=== PATIENT | female | born 1970 | race Caucasian/White ===

== ENCOUNTER 2024-04-18 08:49 | Inpatient (IN) ==
[2024-04-18 10:04] LABS: Hematocrit (blood only) 33.7 % (37.0-47.0); Hemoglobin 11.2 g/dl (12.0-16.0); Mean Corpuscular Hemoglobin 30.7 pg (25.0-34.0); Mean Corpuscular Hgb Conc 33.2 g/dL (32.0-36.0); Mean Corpuscular Volume 92.3 fL (80.0-100.0); Mean Platelet Volume 11.7 fL (9.4-12.4); Platelet Count 246 K/uL (130-400); RDW Coefficient of Variation 13.3 % (11.5-14.5); RDW Standard Deviation 45.5 fL (36.4-46.3); Red Blood Count 3.65 M/uL (4.20-5.40); White Blood Count 18.26 K/ul (4.8-10.8)
[2024-04-18 10:23] LABS: Albumin Globulin Ratio 1.1 (0.9-2); Albumin Level 3.5 gm/dl (3.4-5.0); BUN Creatinine Ratio 17.3 (10-20); Bilirubin,Total 0.9 mg/dl (0.2-1.0); Calcium 9.2 mg/dl (8.6-10.3); Est GFR (African American) 104.7 ml/min; Est GFR (Non-African American) 90.4 ml/min; Globulin 3.3 gm/dl (2.5-4.0); Potassium 4.1 mmol/L (3.5-5.1); Total Protein 6.8 gm/dl (6.0-8.3)
[2024-04-18 10:33] LABS: Basophils # (auto) 0.03 K/uL (0.00-0.20); Basophils % (auto) 0.2 %; Dohle Bodies 1+; Immature Granulocytes % (auto) 0.5 %; Lymphocytes # (auto) 0.39 K/uL (1.20-3.40); Lymphocytes % (auto) 2.1 %; Monocytes # (auto) 0.73 K/uL (0.11-0.59); Neutrophils # (auto) 17.01 K/uL (1.40-6.50); Neutrophils % (auto) 93.2 %; Polychromasia 1+
[2024-04-18] MEDS: SODIUM CHLORIDE 0.9% 1,000 ML IV SCH ×2 (10:37→19:21)
[2024-04-18] MEDS: ACETAMINOPHEN 1,000 MG/100 ML VIAL IV STA (10:38)
[2024-04-18 10:41] LABS: Adenovirus PCR Not Detected (NotDetected); Bordetella parapertussis PCR Not Detected (NotDetected); Bordetella pertussis PCR Not Detected (NotDetected); Chlamydia pneumoniae PCR Not Detected (NotDetected); Coronavirus 229E PCR Not Detected (NotDetected); Coronavirus CoV-2 (COVID19)PCR Not Detected (NotDetected); Coronavirus HKU1 PCR Not Detected (NotDetected); Coronavirus NL63 PCR Not Detected (NotDetected); Coronavirus OC43PCR Not Detected (NotDetected); Human Metapneumovirus PCR Not Detected (NotDetected); Influenza A PCR Not Detected (NotDetected); Influenza B PCR Not Detected (NotDetected); Mycoplasma pneumoniae PCR Not Detected (NotDetected); Parainfluenza Virus 1 PCR Not Detected (NotDetected); Parainfluenza Virus 2 PCR Not Detected (NotDetected); Parainfluenza Virus 3 PCR Not Detected (NotDetected); Parainfluenza Virus 4 PCR Not Detected (NotDetected); Respiratory Syncytial VirusPCR Not Detected (NotDetected); Rhinovirus/Enterovirus PCR Not Detected (NotDetected)
--- NOTE | 2024-04-18 10:43 | XRay Report ---
SINGLE VIEW CHEST CLINICAL HISTORY: Respiratory illness. FINDINGS: An AP, portable, upright chest radiograph is compared to study dated 01/30/2024. The cardiome diastinal silhouette is unremarkable. Airspace consolidation is seen to the left lower lung and there is a small left pleural effusion. The right lung appears clear. No pneumothorax is seen. The bony th orax is grossly intact. IMPRESSION: 1. Airspace consolidation in the left lower lung is typical for pneumonia. Clinical correlation will be required and radiographic follow-up to resolution is recommended. 2. Small left pleural effusion. ACT 112: Negative or not required by law. Electronically signed by: Zion Boston M.D. 04/18/2024 10:40 AM
--- NOTE | 2024-04-18 11:51 | Emergency Department Note ---
Impression & Plan Sepsis, Pneumonia, Bilateral pleural effusion, Leukocytosis ED Provider Note NAME: WILNER DEAN AGE: 54 SEX: F : 1970 ARRIVES VIA: Walk-In INFORMANT: Patient ED PROVIDER(S): Scott Good MD CHIEF COMPLAINT: Fever, generalized body aches, left-sided chest pain, shortness of breath PLAN: Disposition: Admit MEDICAL DECISION MAKING: The patient is a pleasant 54-year-old woman with a past medical history of hypertension, HLD who presents to emergency department via walk-in for evaluation of worsening fevers, body aches, left-sided chest pain shortness of breath after being seen in this emergency department 2 days ago for milder flulike symptoms where she was positive for enterovirus/rhinovirus. She reports since then her symptoms have only worsened. She denies nausea and vomiting. She denies diarrhea but has not had much to eat over the past couple of days. Patient reports history of vaping. On evaluation the patient is uncomfortable but no acute distress, with temperature of 39.3 and vital signs otherwise stable. She appears clinically dry. She has boggy nasal turbinates. She has rhonchi and wheezes of bilateral mid to lower lung bravo, left greater than right. Abdomen is nontender. EKG without overt acute ischemia. Chest x-ray demonstrates suspicion of left lower lobe pneumonia. WBC 18.2 K with neutrophilia but no left shift. H/H 11.2/33.7 decreased from January. Platelets 2 46K, nonspecific. Chemistry without metabolic acidosis. Creatinine is within normal limits. BUN is not elevated. LFTs with ALT of 56, nonspecific and otherwise normal. Lactate wnl. Procalcitonin is elevated 5.1. Respiratory BioFire is negative today. CTA of the chest was performed was negative for PE. Further characterization of multifocal airspace consolidation is described that is confluent throughout the left lower lobe. There is left larger than right pleural effusions. Incidental left breast soft tissue opacity is described. On re-evaluation patient did feel some improvement though still feeling unwell following Dexamethasone and Duoneb for bronchspasm and IV fluid ration with 2 L of normal saline (> 30cc/kg) IV APAP and Toradol. Of note, blood pressure had recorded 90s/40s after CT when the patient was resting and upon reassessment blood pressure was 110s/60s. Patient was given additional IV fluid hydration. Blood culture obtained and empiric treatment for CAP initiated with ceftriaxone and doxycycline. Patient does agree with plan for admission for further management. Case was discussed with Lucero Gracia PAC with Dr. Ledezma, [facility] hospitalist, who will evaluate the patient for admission. Further management per admitting team. Triage Nursing notes reviewed and agree them. Prior/external medical records reviewed Vital Signs: reviewed Differential diagnosis: Reactive airway disease, pneumonia, pneumothorax, COPD, CHF, infections, cardiac ischemia, pulmonary embolism, musculoskeletal, gastrointestinal, as well as other pathologies. ER treatment provided: See below. Diagnostics interpreted by me: ECG: Normal sinus rhythm, 78 bpm no ectopy, no overt ST ovation or depression, QTc 405, QRS 80. Cardiac Monitoring: An order for continuous cardiac monitoring was placed and demonstrated Normal sinus rhythm, 78 bpm no ectopy. Laboratory studies: See below Imaging studies: See below Consultation(s): Case was discussed with Lucero Gracia PAC with Dr. Ledezma, [facility] hospitalist, who will evaluate the patient for admission. HPI: The patient is a pleasant 54-year-old woman with a past medical history of hypertension, HLD who presents to emergency department via walk-in for evaluation of worsening fevers, body aches, left-sided chest pain shortness of breath after being seen in this emergency department 2 days ago for milder flulike symptoms where she was positive for enterovirus/rhinovirus. She reports since then her symptoms have only worsened. She denies nausea and vomiting. She denies diarrhea but has not had much to eat over the past couple of days. Patient reports history of vaping. ROS: See above HPI for pertinent positives & negatives. A total of 10 systems reviewed and were otherwise negative. VITALS:See Below PHYSICAL EXAMINATION: GENERAL: Awake, alert, uncomfortable-appearing, in no distress HENT: Normocephalic, atraumatic. Boggy nasal turbinates. Oropharynx with dry mucous membranes and otherwise unremarkable. EYES: Normal conjunctiva. Sclera non-icteric. NECK: Supple. No nuchal rigidity. FROM. No JVD. RESPIRATORY: Rhonchi and wheezes of bilateral mid to lower lung bravo, left greater than right. CARDIAC: Regular rate, normal rhythm. Extremities warm and well perfused. Pulses equal. ABDOMEN: Soft, non-distended. No tenderness to palpation. No rebound or guarding. No masses. MUSCULOSKELETAL: Chest examination reveals no tenderness. The back is symmetrical on inspection without obvious abnormality. There is no CVA tenderness to palpation. No joint edema. LOWER EXTREMITIES: Calves are equal size bilaterally and non-tender. No edema. No discoloration. NEURO: Normal sensorium. No sensory or motor deficits noted. SKIN: No rash or jaundice noted. ED COURSE: Critical Care: I have personally spent greater than 35 minutes of critical care time in the direct management of this patient. This includes bedside care, interpretation of diagnostic studies, and testing, discussion with consultants, patient, and family members, and other required patient management activities. This 35 minutes is in excess of all separately billable procedures. Scott Good MD Past Med/Surg History Problem List (Updated 04/18/24 @ 17:46 by Scott Good MD) Leukocytosis (Acute) Bilateral pleural effusion (Acute) Anemia Multifocal pneumonia Sepsis (Acute) Pneumonia (Acute) Myalgia (Acute) Lab test negative for COVID-19 virus (Acute) Flu-like symptoms (Acute) Enterovirus infection (Acute) Coronary artery calcification Epigastric abdominal pain (Acute) Headache (Acute) Nausea & vomiting (Acute) Medical History Anxiety Family history of premature CAD Hypertension Gestational diabetes Diabetes mellitus Surgical History History of gastric bypass Family History Mother Afib Pacemaker Father Coronary heart disease Social History Smoking Status: Current every day smoker Tobacco Type: E-cigarettes / Vaping Hx Alcohol Use: No Hx Substance Use: No Preferred Language: Urdu Feels Safe at Home: Yes Allergies Allergies Allergy/AdvReac Type Severity Reaction Status Date / Time Sulfa (Sulfonamide Allergy Mild HIVES Unverified 06/27/16 00:32 Antibiotics) Z CARLOS Allergy Mild HIVES Uncoded 01/31/08 12:00 *GUAIFENESIN/PHENYLEPHRINE Allergy Unknown Y Uncoded 06/27/16 00:32 (Generic Allergy) Home Meds Home Medications Medication Instructions Recorded Confirmed atorvastatin 10 mg tablet 10 mg PO HS 04/18/24 04/18/24 calcium cit 250 mg-ergocalciferol 1 tab PO DAILY 04/18/24 04/18/24 (vit D2) 2.5 mcg (100 unit) tablet cetirizine 10 mg tablet 10 mg PO DAILY 04/18/24 04/18/24 lisinopril 5 mg tablet 5 mg PO DAILY 04/18/24 04/18/24 magnesium oxide 400 mg (241.3 mg 800 mg PO TID 04/18/24 04/18/24 magnesium) tablet metformin 500 mg tablet,extended 500 mg PO BID 04/18/24 04/18/24 release 24 hr metoprolol tartrate 50 mg tablet 50 mg PO BID 04/18/24 04/18/24 semaglutide 0.25 mg or 0.5 mg (2 0.25 mg subcut Q14D 04/18/24 04/18/24 mg/3 mL) subcutaneous pen injector (Ozempic) Results & Data (ED) Vital Signs Vital Signs - 24 hr 04/18/24 09:00 04/18/24 10:20 04/18/24 10:21 Temperature 37.6 C H Temperature Source Oral Pulse Rate 80 Pulse Rate [Radial] 81 Pulse Rate from SpO2 Sensor Pulse Rhythm [Radial] Pulse Strength [Radial] Respiratory Rate 22 18 Respiratory Effort / Characteristics Respiratory Depth Respiratory Pattern Blood Pressure 129/79 Blood Pressure [Left Arm] 128/68 Blood Pressure Mean 95 Blood Pressure Mean [Left Arm] 88 Blood Pressure Position [Left Arm] Pulse Oximetry 97 96 96 Oxygen Delivery Method Room Air Room Air Sepsis Recent Fever Within 48 Hours Yes Sepsis New/Unexplained Change in Mental Status N/A Sepsis Action Taken by Nursing No Action Required 04/18/24 10:22 04/18/24 10:36 04/18/24 12:00 Temperature 39.3 C H Temperature Source Oral Pulse Rate Pulse Rate [Radial] 87 Pulse Rate from SpO2 Sensor Pulse Rhythm [Radial] Pulse Strength [Radial] Respiratory Rate 18 Respiratory Effort / Characteristics Respiratory Depth Respiratory Pattern Blood Pressure Blood Pressure [Left Arm] 108/65 Blood Pressure Mean Blood Pressure Mean [Left Arm] 79 Blood Pressure Position [Left Arm] Pulse Oximetry 97 Oxygen Delivery Method Room Air Room Air Sepsis Recent Fever Within 48 Hours Sepsis New/Unexplained Change in Mental Status Sepsis Action Taken by Nursing 04/18/24 14:12 04/18/24 14:38 04/18/24 15:15 Temperature Temperature Source Pulse Rate 75 Pulse Rate [Radial] 79 84 Pulse Rate from SpO2 Sensor Pulse Rhythm [Radial] Regular Pulse Strength [Radial] Normal Respiratory Rate 18 20 22 Respiratory Effort / Characteristics Non-Labored Spontaneous Respiratory Depth Normal Respiratory Pattern Regular Blood Pressure Blood Pressure [Left Arm] 90/45 L 112/61 Blood Pressure Mean Blood Pressure Mean [Left Arm] 60 78 Blood Pressure Position [Left Arm] Semi-fowlers Pulse Oximetry 93 97 Oxygen Delivery Method Room Air Room Air Sepsis Recent Fever Within 48 Hours Sepsis New/Unexplained Change in Mental Status Sepsis Action Taken by Nursing 04/18/24 15:30 04/18/24 15:31 04/18/24 15:36 Temperature Temperature Source Pulse Rate 79 82 Pulse Rate [Radial] Pulse Rate from SpO2 Sensor Pulse Rhythm [Radial] Pulse Strength [Radial] Respiratory Rate 22 Respiratory Effort / Characteristics Respiratory Depth Respiratory Pattern Blood Pressure 141/67 H Blood Pressure [Left Arm] Blood Pressure Mean 89 Blood Pressure Mean [Left Arm] Blood Pressure Position [Left Arm] Pulse Oximetry Oxygen Delivery Method Sepsis Recent Fever Within 48 Hours Sepsis New/Unexplained Change in Mental Status Sepsis Action Taken by Nursing 04/18/24 16:00 04/18/24 16:30 04/18/24 16:30 Temperature Temperature Source Pulse Rate 69 68 Pulse Rate [Radial] Pulse Rate from SpO2 Sensor 68 68 Pulse Rhythm [Radial] Pulse Strength [Radial] Respiratory Rate 19 18 Respiratory Effort / Characteristics Respiratory Depth Respiratory Pattern Blood Pressure 106/68 Blood Pressure [Left Arm] Blood Pressure Mean 79 Blood Pressure Mean [Left Arm] Blood Pressure Position [Left Arm] Pulse Oximetry 98 95 Oxygen Delivery Method Sepsis Recent Fever Within 48 Hours Sepsis New/Unexplained Change in Mental Status Sepsis Action Taken by Nursing Laboratory Data Attestation: I reviewed the patient's lab results. 04/18/24 09:30 04/18/24 09:30 Lab Results 04/18/24 04/18/24 Range/Units 09:30 12:07 WBC 18.26 H (4.8-10.8) K/ul RBC 3.65 L (4.20-5.40) M/uL Hgb 11.2 L (12.0-16.0) g/dl Hct 33.7 L (37.0-47.0) % MCV 92.3 (80.0-100.0) fL MCH 30.7 (25.0-34.0) pg MCHC 33.2 (32.0-36.0) g/dL RDW Std Deviation 45.5 (36.4-46.3) fL RDW Coeff of Mala 13.3 (11.5-14.5) % Plt Count 246 (130-400) K/uL MPV 11.7 (9.4-12.4) fL Immature Gran % (Auto) 0.5 % Neut % (Auto) 93.2 % Lymph % (Auto) 2.1 % [place] % (Auto) 4.0 % Eos % (Auto) 0.0 % Baso % (Auto) 0.2 % Neut # (Auto) 17.01 H (1.40-6.50) K/uL Lymph # (Auto) 0.39 L (1.20-3.40) K/uL [place] # (Auto) 0.73 H (0.11-0.59) K/uL Eos # (Auto) 0.00 (0.00-0.50) K/uL Baso # (Auto) 0.03 (0.00-0.20) K/uL Immature Gran # (Auto) 0.10 (0.01-0.20) K/uL Dohle Bodies 1+ Polychromasia 1+ Sodium 134 L (136-145) mmol/L Potassium 4.1 (3.5-5.1) mmol/L Chloride 100 (98-107) mmol/L Carbon Dioxide 26 (21-32) mmol/L Anion Gap 8 (3-11) BUN 13 (6-23) mg/dl Creatinine 0.75 (0.6-1.2) mg/dl Est Cr Clr Drug Dosing 87.0 ml/min Est GFR ( Amer) 104.7 ml/min Est GFR (Non-Af Amer) 90.4 ml/min BUN/Creatinine Ratio 17.3 (10-20) Glucose 131 H (70-99(Fasting)) mg/dl Lactate 1.4 (0.4-2.0) mmol/L Calcium 9.2 (8.6-10.3) mg/dl Total Bilirubin 0.9 (0.2-1.0) mg/dl AST 26 (13-39) U/L ALT 56 H (7-52) U/L Alkaline Phosphatase 93 (34-104) U/L Total Protein 6.8 (6.0-8.3) gm/dl Albumin 3.5 (3.4-5.0) gm/dl Globulin 3.3 (2.5-4.0) gm/dl Albumin/Globulin Ratio 1.1 (0.9-2) Procalcitonin 5.11 H (0-0.5) ng/ml Adenovirus (PCR) Not Detected (NotDetected) B. pertussis DNA (PCR) Not Detected (NotDetected) B.parapertussis DNA PCR Not Detected (NotDetected) C. pneumoniae DNA (PCR) Not Detected (NotDetected) Coronavirus OC43 (PCR) Not Detected (NotDetected) Coronavirus HKU1 (PCR) Not Detected (NotDetected) Coronavirus 229E (PCR) Not Detected (NotDetected) SARS-CoV-2 (PCR) Not Detected (NotDetected) Coronavirus NL63 (PCR) Not Detected (NotDetected) Human Metapneumovir PCR Not Detected (NotDetected) Influenza Type A (PCR) Not Detected (NotDetected) Influenza Type B (PCR) Not Detected (NotDetected) M. pneumoniae (PCR) Not Detected (NotDetected) Parainfluenza 1 (PCR) Not Detected (NotDetected) Parainfluenza 2 (PCR) Not Detected (NotDetected) Parainfluenza 3 (PCR) Not Detected (NotDetected) Parainfluenza 4 (PCR) Not Detected (NotDetected) RSV (PCR) Not Detected (NotDetected) Entero/Rhino (PCR) Not Detected (NotDetected) Administered Medications Discontinued Medications Albuterol (Albut/Ipratrop 3mg/0.5mg Neb 3 Ml Vial) 3 ml NEB NOW STA; Protocol Stop: 04/18/24 11:50 Last Admin: 04/18/24 12:49 Dose: 3 ml Documented By: Dexamethasone Sodium Phosphate (DexamethasonePf 10 Mg/Ml Vial) 10 mg IV NOW ONE Stop: 04/18/24 11:50 Last Admin: 04/18/24 12:06 Dose: 10 mg Documented By: KEVIN Sodium Chloride (Nss) 1,000 mls @ 999 mls/hr IV .Q1H1M VICTORIA Stop: 04/18/24 12:27 Last Infusion: 04/18/24 13:29 Dose: Infused Documented By: Admin: 04/18/24 11:55 Dose: 999 mls/hr Documented By: Infusion: 04/18/24 11:55 Dose: Infused Documented By: Admin: 04/18/24 10:37 Dose: 999 mls/hr Documented By: REBA Acetaminophen (Ofirmev) 1,000 mg in 100 mls @ 400 mls/hr IV NOW STA Stop: 04/18/24 10:40 Last Infusion: 04/18/24 11:08 Dose: Infused Documented By: Admin: 04/18/24 10:38 Dose: 400 mls/hr Documented By: REBA Ceftriaxone Sodium (Rocephin) 2,000 mg in 50 mls @ 100 mls/hr IV NOW STA Stop: 04/18/24 12:18 Last Infusion: 04/18/24 12:49 Dose: Infused Documented By: Admin: 04/18/24 12:06 Dose: 100 mls/hr Documented By: KEVIN Doxycycline Hyclate 100 mg/ (Dextrose) 100 mls @ 50 mls/hr IV NOW STA Stop: 04/18/24 13:48 Last Infusion: 04/18/24 16:13 Dose: Infused Documented By: Admin: 04/18/24 13:23 Dose: 50 mls/hr Documented By: KEVIN Sodium Chloride (Nss) 1,000 mls @ 999 mls/hr IV .Q1H1M ONE Stop: 04/18/24 12:52 Last Infusion: 04/18/24 16:13 Dose: Infused Documented By: Admin: 04/18/24 13:24 Dose: 999 mls/hr Documented By: KEVIN Sodium Chloride (Nss) 1,000 mls @ 999 mls/hr IV .Q1H1M ONE Stop: 04/18/24 15:30 Last Admin: 04/18/24 16:13 Dose: 999 mls/hr Documented By: RODNEY Ketorolac Tromethamine (Ketorolac Tromethamine 15 Mg/Ml Vial) 15 mg IV NOW STA Stop: 04/18/24 11:50 Last Admin: 04/18/24 12:06 Dose: 15 mg Documented By: KEVIN Sodium Chloride (Sodium Chloride 0.65% Na Soln 45 Ml ([place])) 2 sprays NA NOW ONE Stop: 04/18/24 11:50 Last Admin: 04/18/24 12:06 Dose: 2 sprays Documented By: KEVIN Imaging Data Radiologist's Impression: Chest X-Ray 04/18/24 09:05 SINGLE VIEW CHEST CLINICAL HISTORY: Respiratory illness. FINDINGS: An AP, portable, upright chest radiograph is compared to study dated 01/30/2024. The cardiomediastinal silhouette is unremarkable. Airspace consolidation is seen to the left lower lung and there is a small left pleural effusion. The right lung appears clear. No pneumothorax is seen. The bony thorax is grossly intact. IMPRESSION: 1. Airspace consolidation in the left lower lung is typical for pneumonia. Clinical correlation will be required and radiographic follow-up to resolution is recommended. 2. Small left pleural effusion. ACT 112: Negative or not required by law. Electronically signed by: Zion Boston M.D. 04/18/2024 10:40 AM Chest CTA 04/18/24 11:49 CT ANGIOGRAM OF THE CHEST CLINICAL HISTORY: Pneumonia. Atypical/left-sided chest pain. COMPARISON STUDY: Chest x-ray dated 04/18/2024. TECHNIQUE: Following the IV administration of 120 cc of Optiray 320, CT angiogram of the chest was performed from the upper abdomen to the thoracic inlet utilizing the pulmonary embolus protocol. Images are reviewed in the axial, sagittal, and coronal planes. 3-D MIPS images are created and assessed. IV contrast was administered without complication. A dose lowering technique was utilized adhering to the principles of ALARA. CT DOSE: 616.49 mGy.cm FINDINGS: Thyroid: Imaged portions of the thyroid gland are normal in size and attenuation. A coarse calcification is seen in the left lobe. Thoracic aorta: The thoracic aorta is normal in caliber and demonstrates standard 3-vessel arch anatomy. No dissection is seen. Pulmonary vasculature: The pulmonary trunk is normal in caliber. There are no filling defects identified in main, lobar, or segmental pulmonary branches to suggest pulmonary embolus. Heart: The heart is normal in size noting trace pericardial effusion. There is coronary artery atherosclerosis. Lungs and pleural spaces: Dense airspace consolidation is seen throughout the left lower lobe. Mild patchy airspace consolidation is seen in the right upper, middle, and lower lobes. There are trace pleural effusions, left larger than right. The trachea and central airways are clear. Mediastinum: Prominent prevascular lymph nodes measure up to 9 mm in short axis. These are likely reactive. Mulu: Clear. Axillae: There is no axillary lymphadenopathy. Upper abdomen: Postsurgical changes noted in the stomach. Partially visualized upper abdominal viscera is otherwise within normal limits. Skeletal structures: No lytic or blastic bony lesions are seen. Soft tissues: There is a 2.9 cm asymmetric soft tissue opacity in the left breast seen on image #100. IMPRESSION: 1. There is no evidence of pulmonary embolus in the main, lobar, or segmental pulmonary arteries. 2. There is multifocal airspace consolidation as above, most confluent throughout the left lower lobe. This is typical for multifocal pneumonia. Clinical correlation will be required and radiographic follow-up to resolution is recommended. 3. Left larger than right pleural effusions. 4. There is an indeterminate 2.9 cm asymmetric soft tissue opacity in the left breast as compared to the right. This is not well evaluated by CT and may represent normal lung parenchyma. Nonemergent mammographic correlation is recommended. 5. Coronary artery atherosclerosis. 6. Additional findings as above. ACT 112: Negative or not required by law. Electronically signed by: Zion Boston M.D. 04/18/2024 1:14 PM Discharge Plan Visit Data Chief Complaint: Illness Stated Complaint: ENTEROVIRUS ED Provider: Scott Good Discharge Problem: Sepsis, Pneumonia, Bilateral pleural effusion, Leukocytosis Forms Stand Alone Forms: My [facility] Prescriptions Prescriptions: No Action cetirizine 10 mg Tablet 10 mg PO DAILY atorvastatin 10 mg Tablet 10 mg PO HS magnesium oxide 400 mg (241.3 mg magnesium) Tablet 800 mg PO TID metoprolol tartrate 50 mg Tablet 50 mg PO BID lisinopril 5 mg Tablet 5 mg PO DAILY metformin 500 mg Tablet Extended Release 24 Hr 500 mg PO BID Calcium Citrate With D 250 mg-2.5 mcg (100 unit) Tablet 1 tab PO DAILY Ozempic 0.25 mg or 0.5 mg (2 mg/3 mL) Pen Injector 0.25 mg SUBCUT Q14D Referrals Referrals: Andrey De Luna M.D. [Primary Care Provider] - Discharge Problem: Sepsis Qualifiers: Sepsis type: sepsis due to unspecified organism Sepsis acute organ dysfunction status: without acute organ dysfunction Qualified Code(s): A41.9 - Sepsis, unspecified organism Pneumonia Qualifiers: Pneumonia type: due to unspecified organism Laterality: left Lung location: l ower lobe of lung Qualified Code(s): J18.9 - Pneumonia, unspecified organism Leukocytosis Qualifiers: Leukocytosis type: unspecified Qualified Code(s): D72.829 - Elevated white blood cell count, unspecified
[2024-04-18] MEDS: dexAMETHasone**PF** 10 MG/ML VIAL IV ONE (12:06)
[2024-04-18] MEDS: KETOROLAC TROMETHAMINE 15 MG/ML VIAL IV STA (12:06)
[2024-04-18] MEDS: cefTRIAXone SODIUM 2,000 MG/50 ML BAG IV STA (12:06)
[2024-04-18] MEDS: SODIUM CHLORIDE 0.65% NA SOLN 45 ML (OCEAN) ONE (12:06)
[2024-04-18] MEDS: ALBUT/IPRATROP 3MG/0.5MG NEB 3 ML VIAL NEB STA (12:49)
--- NOTE | 2024-04-18 13:15 | CT Scan Report ---
CT ANGIOGRAM OF THE CHEST CLINICAL HISTORY: Pneumonia. Atypical/left-sided chest pain. COMPARISON STUDY: Chest x-ray dated 04/18/2024. TECHNIQUE: Following the IV administration of 120 cc of Optiray 320, CT angiogram of the chest was pe rformed from the upper abdomen to the thoracic inlet utilizing the pulmonary embolus protocol. Images are reviewed in the axial, sagittal, and coronal planes. 3-D MIPS images are created and assessed. I V contrast was administered without complication. A dose lowering technique was utilized adhering to the principles of ALARA. CT DOSE: 616.49 mGy.cm FINDINGS: Thyroid: Imaged portions of the thyroid gland are normal in size and attenuation. A coarse calcificat ion is seen in the left lobe. Thoracic aorta: The thoracic aorta is normal in caliber and demonstrates standard 3-vessel arch anato my. No dissection is seen. Pulmonary vasculature: The pulmonary trunk is normal in caliber. There are no filling defects identif ied in main, lobar, or segmental pulmonary branches to suggest pulmonary embolus. Heart: The heart is normal in size noting trace pericardial effusion. There is coronary artery athero sclerosis. Lungs and pleural spaces: Dense airspace consolidation is seen throughout the left lower lobe. Mild p atchy airspace consolidation is seen in the right upper, middle, and lower lobes. There are trace ple ural effusions, left larger than right. The trachea and central airways are clear. Mediastinum: Prominent prevascular lymph nodes measure up to 9 mm in short axis. These are likely lianna ctive. Mulu: Clear. Axillae: There is no axillary lymphadenopathy. Upper abdomen: Postsurgical changes noted in the stomach. Partially visualized upper abdominal viscer a is otherwise within normal limits. Skeletal structures: No lytic or blastic bony lesions are seen. Soft tissues: There is a 2.9 cm asymmetric soft tissue opacity in the left breast seen on image #100. IMPRESSION: 1. There is no evidence of pulmonary embolus in the main, lobar, or segmental pulmonary arteries. 2. There is multifocal airspace consolidation as above, most confluent throughout the left lower lobe . This is typical for multifocal pneumonia. Clinical correlation will be required and radiographic fo llow-up to resolution is recommended. 3. Left larger than right pleural effusions. 4. There is an indeterminate 2.9 cm asymmetric soft tissue opacity in the left breast as compared to the right. This is not well evaluated by CT and may represent normal lung parenchyma. Nonemergent josfeina mographic correlation is recommended. 5. Coronary artery atherosclerosis. 6. Additional findings as above. ACT 112: Negative or not required by law. Electronically signed by: Zion Boston M.D. 04/18/2024 1:14 PM
[2024-04-18] MEDS: DOXYCYCLINE HYCLATE 100 MG in DEXTROSE 5% MINI-B 100 ML IV STA (13:23)
[2024-04-18] MEDS: SODIUM CHLORIDE 0.9% 1,000 ML IV ONE ×2 (13:24→16:13)
--- NOTE | 2024-04-18 15:30 | History & Physical Report ---
Date of Service April 18, 2024 Assessment & Plan (1) Sepsis: (2) Multifocal pneumonia: (3) Anemia: (4) Diabetes mellitus: (5) Hypertension: Plan This is a 54 yr old F who has a significant PMH of T2DM, premature FH of CAD, HTN, HLD and anxiety who presents to the ED 2/2 fever and cough. Pt met Sepsis criteria per current CMS guidelines in setting of fever, leukocytosis and evidence of PNA. She received broad spectrum antibiotics with IV rocephin and doxy along with 2L of IVF. She does not have a lactic acidosis. Sepsis Multifocal PNA Admit to [facility] IV Zosyn and doxycycline MRSA swab, gentle IVF x 1 L then d/c nebs, flutter valve, spirometry and muccinex recently tested + for adeno/rhinovirus HTN: chronic, stable, continue metoprolol, lisinopril HLD: chronic, stable on statin T2DM: unknown a1c, hold ozempic and metformin, sliding scale insulin Abnormal CT chest: There is an indeterminate 2.9 cm asymmetric soft tissue opac ity in the left breast as compared to the right. This is not well evaluated by CT and may represent normal lung parenchyma. Nonemergent mammographic correlation is recommended. pt reports dense breasts and is due for mammo DVT ppx: SQ Lovenox FULL CODE PCP: Wilton De Luna Dispo: admit to [facility] Pt was seen and examined in collaboration with Dr. Ledezma, please see addendum A total of 62 minutes was spent coordinating, documenting, and providing care for this patient excluding time spent in the performance of separately billed services. This included personally viewing all current laboratories and imaging studies, medication reconciliation, outpatient chart review, and discussion with specialists. History of Present Illness Chief Complaint: Persistent fever and cough. Primary Care Provider: Andrey De Luna M.D. This is a 54 yr old F who has a significant PMH of T2DM, premature FH of CAD, HTN, HLD and anxiety who presents to the ED 2/2 fever and cough. Pt was seen in ED 3 days ago due to URI sx and fever. She was told she had enterovirus/rhinovirus and was discharge home. Despite fluids and supportive care she continued to feel ill, feverish, sweats, cough and poor appetite. She denies chest pain, sob, hemopytsis, n/v/d, abd pain, dizziness, lightheaded, change in bowel/urinary habits. In ED pt met sepsis criteria in setting of fever and leukocytosis. CXR and CTA reveals a multifocal PNA. She received 2L of IVF and broad spectrum antibiotic with IV rocephin and doxycycline. Allergies Allergy/AdvReac Type Severity Reaction Status Date / Time Sulfa (Sulfonamide Allergy Mild HIVES Unverified 06/27/16 00:32 Antibiotics) azithromycin Allergy . Verified 04/18/24 18:43 guaifenesin Allergy COMBO: Verified 04/18/24 18:43 guaifenesin/phenylephrine phenylephrine Allergy COMBO: Verified 04/18/24 18:43 guaifenesin/phenylephrine Home Medications Medication Instructions Recorded Confirmed Type atorvastatin 10 mg tablet 10 mg PO HS 04/18/24 04/18/24 History calcium cit 250 mg-ergocalciferol 1 tab PO DAILY 04/18/24 04/18/24 History (vit D2) 2.5 mcg (100 unit) tablet cetirizine 10 mg tablet 10 mg PO DAILY 04/18/24 04/18/24 History lisinopril 5 mg tablet 5 mg PO DAILY 04/18/24 04/18/24 History magnesium oxide 400 mg (241.3 mg 800 mg PO TID 04/18/24 04/18/24 History magnesium) tablet metformin 500 mg tablet,extended 500 mg PO BID 04/18/24 04/18/24 History release 24 hr metoprolol tartrate 50 mg tablet 50 mg PO BID 04/18/24 04/18/24 History semaglutide 0.25 mg or 0.5 mg (2 0.25 mg subcut Q14D 04/18/24 04/18/24 History mg/3 mL) subcutaneous pen injector (Ozempic) Past Med/Surg History Problem List Leukocytosis (Acute) Bilateral pleural effusion (Acute) Anemia Multifocal pneumonia Sepsis (Acute) Pneumonia (Acute) Myalgia (Acute) Lab test negative for COVID-19 virus (Acute) Flu-like symptoms (Acute) Enterovirus infection (Acute) Coronary artery calcification Epigastric abdominal pain (Acute) Headache (Acute) Nausea & vomiting (Acute) Medical History Anxiety Family history of premature CAD Hypertension Gestational diabetes Diabetes mellitus Surgical History History of gastric bypass Family History Mother Afib Pacemaker Father Coronary heart disease Social History Smoking Status: Current some day smoker Tobacco Type: E-cigarettes / Vaping Hx Alcohol Use: Yes Alcohol type: beer Hx Substance Use: Yes Last Used Substance: Days (ago) Last Used Substance Other:: months ago Preferred Language: Egyptian Engineer Intern Required: No Beliefs That Will Affect Care: None Current Living Situation: Spouse Other Information That Helps Us Care for You: Yes (gastric bipass history; GI issues) Feels Safe at Home: Yes Assistive Devices: Glasses Review of Systems Review of Systems: All systems reviewed & are unremarkable except as noted in HPI & below Physical Exam Physical Exam: please refer to Dr. Ledezma addendum for physical exam findings. Results & Data Results & Data Vital Signs (Past 12 Hours) Vital Signs Temp Pulse Pulse Resp BP BP Pulse Ox 04/18/24 14:38 84 20 112/61 97 04/18/24 14:12 79 18 90/45 L 93 04/18/24 12:00 87 18 108/65 97 04/18/24 10:36 39.3 C H 04/18/24 10:22 04/18/24 10:21 96 04/18/24 10:20 81 18 128/68 96 04/18/24 09:00 37.6 C H 80 22 129/79 97 O2 Del Method 04/18/24 14:38 Room Air 04/18/24 14:12 Room Air 04/18/24 12:00 Room Air 04/18/24 10:36 04/18/24 10:22 Room Air 04/18/24 10:21 Room Air 04/18/24 10:20 04/18/24 09:00 Room Air Laboratory Results I have independently reviewed and interpreted patient's admitting labs including CBC, CMP, procalcitonin, respiratory biofire Diagnostic Findings Chest X-Ray 04/18/24 09:05 SINGLE VIEW CHEST CLINICAL HISTORY: Respiratory illness. FINDINGS: An AP, portable, upright chest radiograph is compared to study dated 01/30/2024. The cardiomediastinal silhouette is unremarkable. Airspace consolidation is seen to the left lower lung and there is a small left pleural effusion. The right lung appears clear. No pneumothorax is seen. The bony thorax is grossly intact. IMPRESSION: 1. Airspace consolidation in the left lower lung is typical for pneumonia. Clinical correlation will be required and radiographic follow-up to resolution is recommended. 2. Small left pleural effusion. ACT 112: Negative or not required by law. Electronically signed by: Zion Boston M.D. 04/18/2024 10:40 AM Chest CTA 04/18/24 11:49 CT ANGIOGRAM OF THE CHEST CLINICAL HISTORY: Pneumonia. Atypical/left-sided chest pain. COMPARISON STUDY: Chest x-ray dated 04/18/2024. TECHNIQUE: Following the IV administration of 120 cc of Optiray 320, CT angiogram of the chest was performed from the upper abdomen to the thoracic inlet utilizing the pulmonary embolus protocol. Images are reviewed in the axial, sagittal, and coronal planes. 3-D MIPS images are created and assessed. IV contrast was administered without complication. A dose lowering technique was utilized adhering to the principles of ALARA. CT DOSE: 616.49 mGy.cm FINDINGS: Thyroid: Imaged portions of the thyroid gland are normal in size and attenuation. A coarse calcification is seen in the left lobe. Thoracic aorta: The thoracic aorta is normal in caliber and demonstrates standard 3-vessel arch anatomy. No dissection is seen. Pulmonary vasculature: The pulmonary trunk is normal in caliber. There are no filling defects identified in main, lobar, or segmental pulmonary branches to suggest pulmonary embolus. Heart: The heart is normal in size noting trace pericardial effusion. There is coronary artery atherosclerosis. Lungs and pleural spaces: Dense airspace consolidation is seen throughout the left lower lobe. Mild patchy airspace consolidation is seen in the right upper, middle, and lower lobes. There are trace pleural effusions, left larger than right. The trachea and central airways are clear. Mediastinum: Prominent prevascular lymph nodes measure up to 9 mm in short axis. These are likely reactive. Mulu: Clear. Axillae: There is no axillary lymphadenopathy. Upper abdomen: Postsurgical changes noted in the stomach. Partially visualized upper abdominal viscera is otherwise within normal limits. Skeletal structures: No lytic or blastic bony lesions are seen. Soft tissues: There is a 2.9 cm asymmetric soft tissue opacity in the left breast seen on image #100. IMPRESSION: 1. There is no evidence of pulmonary embolus in the main, lobar, or segmental pulmonary arteries. 2. There is multifocal airspace consolidation as above, most confluent throughout the left lower lobe. This is typical for multifocal pneumonia. Clinical correlation will be required and radiographic follow-up to resolution is recommended. 3. Left larger than right pleural effusions. 4. There is an indeterminate 2.9 cm asymmetric soft tissue opacity in the left breast as compared to the right. This is not well evaluated by CT and may r epresent normal lung parenchyma. Nonemergent mammographic correlation is recommended. 5. Coronary artery atherosclerosis. 6. Additional findings as above. ACT 112: Negative or not required by law. Electronically signed by: Zion Boston M.D. 04/18/2024 1:14 PM Medications Administered Medication List Discontinued Medications Albuterol (Albut/Ipratrop 3mg/0.5mg Neb 3 Ml Vial) 3 ml NEB NOW STA; Protocol Stop: 04/18/24 11:50 Last Admin: 04/18/24 12:49 Dose: 3 ml Documented By: Dexamethasone Sodium Phosphate (DexamethasonePf 10 Mg/Ml Vial) 10 mg IV NOW ONE Stop: 04/18/24 11:50 Last Admin: 04/18/24 12:06 Dose: 10 mg Documented By: KEVIN Sodium Chloride (Nss) 1,000 mls @ 999 mls/hr IV .Q1H1M VICTORIA Stop: 04/18/24 12:27 Last Infusion: 04/18/24 13:29 Dose: Infused Documented By: Admin: 04/18/24 11:55 Dose: 999 mls/hr Documented By: Infusion: 04/18/24 11:55 Dose: Infused Documented By: Admin: 04/18/24 10:37 Dose: 999 mls/hr Documented By: REBA Acetaminophen (Ofirmev) 1,000 mg in 100 mls @ 400 mls/hr IV NOW STA Stop: 04/18/24 10:40 Last Infusion: 04/18/24 11:08 Dose: Infused Documented By: Admin: 04/18/24 10:38 Dose: 400 mls/hr Documented By: REBA Ceftriaxone Sodium (Rocephin) 2,000 mg in 50 mls @ 100 mls/hr IV NOW STA Stop: 04/18/24 12:18 Last Infusion: 04/18/24 12:49 Dose: Infused Documented By: Admin: 04/18/24 12:06 Dose: 100 mls/hr Documented By: KEVIN Doxycycline Hyclate 100 mg/ (Dextrose) 100 mls @ 50 mls/hr IV NOW STA Stop: 04/18/24 13:48 Last Admin: 04/18/24 13:23 Dose: 50 mls/hr Documented By: KEVIN Sodium Chloride (Nss) 1,000 mls @ 999 mls/hr IV .Q1H1M ONE Stop: 04/18/24 12:52 Last Admin: 04/18/24 13:24 Dose: 999 mls/hr Documented By: KEVIN Ketorolac Tromethamine (Ketorolac Tromethamine 15 Mg/Ml Vial) 15 mg IV NOW STA Stop: 04/18/24 11:50 Last Admin: 04/18/24 12:06 Dose: 15 mg Documented By: KEVIN Sodium Chloride (Sodium Chloride 0.65% Na Soln 45 Ml ([place])) 2 sprays NA NOW ONE Stop: 04/18/24 11:50 Last Admin: 04/18/24 12:06 Dose: 2 sprays Documented By: KEVIN ECG Additional Comments: I have independently reviewed and interpreted patient's admitting EKG which revealed: NSR 78 bpm t wave flattening in V6 V5 t wave inversion COVID-19 Results Results COVID-19 Adm Lab Results: RBC 3.65 M/uL (4.20-5.40) L 04/18/24 WBC 18.26 K/ul (4.8-10.8) H 04/18/24 Hgb 11.2 g/dl (12.0-16.0) L 04/18/24 Hct 33.7 % (37.0-47.0) L 04/18/24 Plt Count 246 K/uL (130-400) 04/18/24 Neutrophils (%) (Auto) 93.2 % 04/18/24 Lymphocytes (%) (Auto) 2.1 % 04/18/24 Monocytes # (Auto) 0.73 K/uL (0.11-0.59) H 04/18/24 Immature Granulocyte % (Auto) 0.5 % 04/18/24 Neutrophils # (Auto) 17.01 K/uL (1.40-6.50) H 04/18/24 Lymphocytes # (Auto) 0.39 K/uL (1.20-3.40) L 04/18/24 Monocytes # (Auto) 0.73 K/uL (0.11-0.59) H 04/18/24 Basophils # (Auto) 0.03 K/uL (0.00-0.20) 04/18/24 Immature Granulocyte # (Auto) 0.10 K/uL (0.01-0.20) 4 Polychromasia 1+ 04/18/24 Dohle Bodies 1+ 04/18/24 Na 134 mmol/L (136-145) L 04/18/24 K 4.1 mmol/L (3.5-5.1) 04/18/24 Cl 100 mmol/L (98-107) 04/18/24 CO2 26 mmol/L (21-32) 04/18/24 Anion Gap 8 (3-11) 04/18/24 BUN 13 mg/dl (6-23) 04/18/24 Creatinine 0.75 mg/dl (0.6-1.2) 04/18/24 BUN/Creatinine Ratio 17.3 (10-20) 04/18/24 Glucose Level 131 mg/dl (70-99(Fasting)) H 04/18/24 Ca 9.2 mg/dl (8.6-10.3) 04/18/24 Total Bilirubin 0.9 mg/dl (0.2-1.0) 04/18/24 AST/SGOT 26 U/L (13-39) 04/18/24 ALT/SGPT 56 U/L (7-52) H 04/18/24 Alkaline Phosphatase 93 U/L (34-104) 04/18/24 Total Protein 6.8 gm/dl (6.0-8.3) 04/18/24 Albumin 3.5 gm/dl (3.4-5.0) 04/18/24 Globulin 3.3 gm/dl (2.5-4.0) 04/18/24 Albumin/Globulin Ratio 1.1 (0.9-2) 04/18/24 Procalcitonin 5.11 ng/ml (0-0.5) H 04/18/24 Adenovirus (PCR) Not Detected (NotDetected) 04/18/24 B. parapertussis DNA (PCR) Not Detected (NotDetected) 03/26 12/15 B. pertussis DNA (PCR) Not Detected (NotDetected) 04/18/24 C. pneumoniae DNA (PCR) Not Detected (NotDetected) 4 Coronavirus Type OC43 (PCR) Not Detected (NotDetected) Coronavirus Type HKU1 (PCR) Not Detected (NotDetected) Coronavirus Type 229E (PCR) Not Detected (NotDetected) COVID-19 PCR Not Detected (NotDetected) 04/18/24 Coronavirus Type NL63 (PCR) Not Detected (NotDetected) Human Metapneumovirus (PCR) Not Detected (NotDetected) Influenza Virus Type A (PCR) Not Detected (NotDetected) Influenza Virus Type B (PCR) Not Detected (NotDetected) M. pneumoniae (PCR) Not Detected (NotDetected) 04/18/24 Parainfluenza Type 1 (PCR) Not Detected (NotDetected) 03/26 12/15 Parainfluenza Type 2 (PCR) Not Detected (NotDetected) 03/26 12/15 Parainfluenza Type 3 (PCR) Not Detected (NotDetected) 03/26 12/15 Parainfluenza Type 4 (PCR) Not Detected (NotDetected) 03/26 12/15 RSV (PCR) Not Detected (NotDetected) 04/18/24 Enterovirus/Rhinovirus (PCR) Not Detected (NotDetected) Chest X-Ray 04/18/24 Code Status & VTE Plan Code Status FULL CODE VTE Prophylaxis Plan VTE Prophylaxis will be ordered: Yes Supervising Physician Co-Signing Physician Notes Patient is a 54-year-old female with history of hypertension, diabetes mellitus, obesity S/P gastric bypass and other medical problems presents with history of cough, fever poor appetite, diaphoresis and was diagnosed to have into rhinovirus 3 days ago. Patient symptoms continue to worsen and so came to ED for further evaluation. Imaging studies suggestive of multifocal pneumonia. Normal BioFire, lactate levels. Procalcitonin elevated at 5.1, white blood cell count 18K. I personally reviewed blood work and imaging studies. Also noted incidental left breast opacity 2.9 cm. CTA showed no PE. Physical Exam: Vitals signs as noted above General Appearance: Thin, no apparent distress Head: normocephalic, Atraumatic Eyes: normal inspection, EOMI Neck: supple, Trachea midline Respiratory/Chest: Normal breath sounds, left lower crackles, No accessory muscle use Cardiovascular: S1, S2, No murmur Abdomen/GI:Soft, Non tender, Bowel sounds present Extremities/Musculoskeletal:normal inspection, no edema Neurologic/Psych:AAOX3, grossly no focal neurological deficits Skin: normal color, warm Sepsis Multifocal pneumonia Recent enterorhinovirus infection Left breast opacity--incidental finding Agree with broad-spectrum antibiotics. Check nasal MRSA. Gentle IV fluids, pulmonary hygiene Needs further workup as outpatient for left breast opacity I personally interviewed and examined at bedside. Patient's care is coordinated with Lucero Perrin PA-C. I have reviewed the advanced practitioner's documentation, and I agree with plan of care. Please refer to the documentation above for details of patient's presentation and for discussion of other issues. I spent a total [id number] coordinating, documenting, and providing care for this patient excluding time spent in the performance of separately billed services.
[2024-04-18] MEDS ORDERED: guaiFENesin 600 MG TABCR PO PRN (18:31)
[2024-04-18] MEDS ORDERED: GLUCAGON FOR INJ 1 MG VIAL SQ PRN (18:31)
[2024-04-18] MEDS ORDERED: DEXTROSE 50% 50 ML SYRINGE IV PRN (18:31)
[2024-04-18] MEDS ORDERED: POLYETHYLENE (MIRALAX) 17 GM PACK PO PRN (18:31)
[2024-04-18] MEDS ORDERED: ONDANSETRON INJ 2 MG/ML 2 ML VIAL IV PRN (18:31)
[2024-04-18] MEDS ORDERED: GLUCOSE 40% GEL 15 GM TUBE PO PRN (18:31)
[2024-04-18] MEDS ORDERED: CARBOHYDRATES FOR HYPOGLYCEMIA PO PRN (18:31)
[2024-04-18] MEDS ORDERED: GLUCOSE 10 TAB/TUBE PO PRN (18:31)
[2024-04-18] MEDS: PIPERACILLIN/TAZOBACTAM 4.5 GM/100 ML BAG IV ONE (19:20)
[2024-04-18] MEDS: ALBUTEROL 0.083% NEBU SOLN 3 ML VIAL NEB PRN (19:39)
[2024-04-18] MEDS: INSULIN ASPART PER UNIT CHARGE SC SCH (20:01)
[2024-04-18] MEDS: METOPROLOL TARTRATE 50 MG TAB PO SCH (21:00)
[2024-04-18] MEDS: ATORVASTATIN 10 MG TAB PO SCH (21:00)
[2024-04-18] MEDS: DOXYCYCLINE HYCLATE 100 MG CAP PO SCH (21:01)
[2024-04-18] MEDS: MAGNESIUM OXIDE 400 MG TAB PO SCH (21:01)
[2024-04-18] MEDS: ENOXAPARIN INJ 40 MG/0.4 ML SYR SQ SCH (21:05)
[2024-04-19] MEDS: PIPERACILLIN/TAZOBACTAM 4.5 GM/100 ML BAG IV SCH (01:33)
--- NOTE | 2024-04-19 06:08 | Electrocardiogram Report ---
Test Reason : Blood Pressure : */* mmHG Vent. Rate : 78 BPM Atrial Rate : 78 BPM P-R Int : 118 ms QRS Dur : 80 ms QT Int : 356 ms P-R-T Axes : 65 59 16 degrees QTcB Int : 405 ms Normal sinus rhythm Cannot rule out Anterior infarct , age undetermined Nonspecific ST abnormality Abnormal ECG When compared with ECG of 30-Jan-2024 07:38, No significant change was found Confirmed by Prince Cruz ([id number]) on 04/19/2024 6:07:41 AM Referred By: Confirmed By: Prince Cruz
[2024-04-19 07:10] LABS: Hemoglobin 11.6 g/dl (12.0-16.0); Mean Corpuscular Hemoglobin 30.7 pg (25.0-34.0); Mean Corpuscular Hgb Conc 33.1 g/dL (32.0-36.0); Mean Corpuscular Volume 92.6 fL (80.0-100.0); Mean Platelet Volume 12.1 fL (9.4-12.4); Platelet Count 233 K/uL (130-400); RDW Coefficient of Variation 13.4 % (11.5-14.5); RDW Standard Deviation 46.5 fL (36.4-46.3); Red Blood Count 3.78 M/uL (4.20-5.40); White Blood Count 19.02 K/ul (4.8-10.8)
[2024-04-19 07:42] LABS: Basophils # (auto) 0.03 K/uL (0.00-0.20); Basophils % (auto) 0.2 %; Echinocytes 1+; Eosinophils # (auto) 0.06 K/uL (0.00-0.50); Eosinophils % (auto) 0.3 %; Immature Granulocytes % (auto) 0.5 %; Lymphocytes # (auto) 0.79 K/uL (1.20-3.40); Lymphocytes % (auto) 4.2 %; Monocytes # (auto) 0.63 K/uL (0.11-0.59); Monocytes % (auto) 3.3 %; Neutrophils # (auto) 17.41 K/uL (1.40-6.50); Neutrophils % (auto) 91.5 %
[2024-04-19 07:43] LABS: Estimated Average Glucose 146 mg/dl; Hemoglobin A1C 6.7 % (4.5-5.6)
[2024-04-19 08:21] LABS: Folate (Folic Acid),Ser orPlas 16.46 ng/ml (>5.38)
[2024-04-19] MEDS: CETIRIZINE HCL 10 MG TABLET PO SCH (08:41)
[2024-04-19] MEDS: CALCIUM 600MG + VIT D 400 IU TAB PO SCH (08:41)
[2024-04-19 08:42] LABS: Albumin Level 3.5 gm/dl (3.4-5.0); Bilirubin,Total 0.5 mg/dl (0.2-1.0); Potassium 3.9 mmol/L (3.5-5.1)
[2024-04-19] MEDS: ADVANCED PROBIOTIC 625 MG CAPSULE PO SCH (08:42)
[2024-04-19 08:48] LABS: Albumin Globulin Ratio 1.1 (0.9-2); BUN Creatinine Ratio 30.9 (10-20); Creatinine Clr Calc Pharmacy 123.7 ml/min; Est GFR (African American) 123.2 ml/min; Est GFR (Non-African American) 106.3 ml/min; Globulin 3.3 gm/dl (2.5-4.0); Total Protein 6.8 gm/dl (6.0-8.3)
[2024-04-19] MEDS: CEFEPIME 2,000 MG in SYRINGE 0 ML IV SCH (10:25)
--- NOTE | 2024-04-19 12:33 | Hospitalist Progress Note ---
Date of Service April 19, 2024 Assessment & Plan (1) Sepsis: (2) Multifocal pneumonia: (3) Anemia: (4) Diabetes mellitus: (5) Hypertension: Plan This is a 54 yr old F who has a significant PMH of T2DM, premature FH of CAD, HTN, HLD and anxiety who presents to the ED 2/2 fever and cough. Pt met Sepsis criteria per current CMS guidelines in setting of fever, leukocytosis and evidence of PNA. She received broad spectrum antibiotics with IV rocephin and doxy along with 2L of IVF. She does not have a lactic acidosis. Sepsis Multifocal PNA IV Zosyn and doxycycline MRSA swab-Is negative, Received gentle IVF x 1 L then d/c Has been on nebs, flutter valve, spirometry and muccinex recently tested + for adeno/rhinovirus-CTA did not show any evidence of pulmonary embolism She has history of allergy to penicillin involving generalized hives and swelling of the lips and throat Received 1 dose of Zosyn in the emergency room and also received steroid Will discontinue Zosyn and start cefepime to cover possible Pseudomonas as well She has been feeling much better since admission HTN: chronic, stable, continue metoprolol, lisinopril HLD: chronic, stable on statin T2DM: unknown a1c,-Hemoglobin A1c 6.7 Hold ozempic and metformin, sliding scale insulin Abnormal CT chest: There is an indeterminate 2.9 cm asymmetric soft tissue opacity in the left breast as compared to the right. This is not well evaluated by CT and may represent normal lung parenchyma. Nonemergent mammographic correlation is recommended. pt reports dense breasts and is due for mammo Minimal fluid bilaterally in pleural space Doubt anything drainable Will get repeat chest x-ray tomorrow or day after tomorrow DVT ppx: SQ Lovenox FULL CODE PCP: Wilton De Luna Dispo: admit to [facility] tele Admission and Anticipated Discharge Date Admission Date: April 18, 2024 Subjective 04/19/2024 The patient was seen and examined in medical telemetry unit She was admitted with fever and chills and weakness which has been going on since Tuesday evening She has been getting much better since admission with intravenous antibiotic Denies any cough or any shortness of breath at rest Review of Systems Review of Systems: All systems reviewed and are unremarkable except as noted below Physical Exam Physical Exam: Sitting at the edge of the bed without any acute distress Constitutional: well developed, well nourished, + ill appearing and average body habitus Eyes: PERRL, conjunctivae normal, anicteric sclerae ENMT: external ear and nose normal, oropharynx normal Neck: trachea midline, no thyromegaly Respiratory: + respiratory distress (Minimal distress at rest) Auscultation: + diminished lung sounds and + crackles (Bibasilar crackles more on the left than the right) Cardiovascular: Rate/Rhythm: regular rate and regular rhythm; not tachycardic Heart Sounds: normal S1 and normal S2; no murmur Extremities: no edema Gastrointestinal (Abdomen): Inspection/Auscultation: normal bowel sounds; abdomen not distended Percussion/Palpation: abdomen soft; abdomen nontender Musculoskeletal: No acute arthritis involving any of the joints Neurologic: normal touch/pain/proprioception and moves all extremities; no focal motor deficits Psychiatric: A+Ox3, euthymic affect Lymphatic: no cervical or axillary lymphadenopathy Results & Data Results & Data Vital Signs (Past 12 Hours) Vital Signs Temp Pulse Pulse Resp BP BP Pulse Ox 04/19/24 12:06 34.4 C L 79 14 132/77 97 04/19/24 07:46 91 H 04/19/24 07:40 36.4 C L 77 18 135/83 97 04/19/24 05:29 64 18 95 04/19/24 03:50 36.3 C L 61 17 109/63 95 O2 Del Method 04/19/24 12:06 Room Air 04/19/24 07:46 04/19/24 07:40 Room Air 04/19/24 05:29 Room Air 04/19/24 03:50 Room Air Laboratory Results Short CBC 04/19/24 Range/Units 05:53 WBC 19.02 H (4.8-10.8) K/ul Hgb 11.6 L (12.0-16.0) g/dl Hct 35.0 L (37.0-47.0) % Plt Count 233 (130-400) K/uL BMP 04/19/24 05:53 Sodium 139 Potassium 3.9 Chloride 107 Carbon Dioxide 18 L BUN 17 Creatinine 0.55 L Glucose 246 H Calcium 9.0 Liver Function 04/19/24 Range/Units 05:53 Total Bilirubin 0.5 (0.2-1.0) mg/dl AST 113 H (13-39) U/L ALT 114 H (7-52) U/L Alkaline Phosphatase 120 H (34-104) U/L Albumin 3.5 (3.4-5.0) gm/dl Medications Administered Current Inpatient Medications Acetaminophen (Acetaminophen 325 Mg Tab) 650 mg PO Q4H PRN PRN Reason: Pain or Fever Stop: 05/18/24 18:30 Albuterol (Albuterol 0.083% Nebu Soln 3 Ml Vial) 2.5 mg NEB Q6H PRN; Protocol PRN Reason: Shortness Of Breath Or Wheezing Stop: 05/18/24 18:30 Last Admin: 04/19/24 05:27 Dose: 2.5 mg Atorvastatin Calcium (Atorvastatin 10 Mg Tab) 10 mg PO HS VICTORIA Stop: 05/18/24 20:59 Last Admin: 04/18/24 21:00 Dose: 10 mg Benzonatate (Benzonatate 100 Mg Capsule) 100 mg PO TID PRN PRN Reason: Cough Stop: 05/18/24 18:30 Calcium/Vitamin D (Calcium 600mg + Vit D 400 Iu Tab) 1 tab PO DAILY VICTORIA Stop: 05/19/24 08:59 Last Admin: 04/19/24 08:41 Dose: 1 tab Cetirizine HCl (Cetirizine Hcl 10 Mg Tablet) 10 mg PO DAILY VICTORIA Stop: 05/19/24 08:59 Last Admin: 04/19/24 08:41 Dose: 10 mg Dextrose (Dextrose 50% 50 Ml Syringe) 25 - 50 ml IV UD PRN; Protocol PRN Reason: Hypoglycemia Protocol Stop: 05/18/24 18:30 Doxycycline Hyclate (Doxycycline Hyclate 100 Mg Cap) 100 mg PO BID VICTORIA Stop: 04/25/24 20:59 Last Admin: 04/19/24 08:41 Dose: 100 mg Enoxaparin Sodium (Enoxaparin Inj 40 Mg/0.4 Ml Syr) 40 mg SQ HS VICTORIA Stop: 05/18/24 20:59 Last Admin: 04/18/24 21:05 Dose: 40 mg Famotidine (Famotidine 20 Mg Tab) 20 mg PO DAILY PRN PRN Reason: Heartburn Stop: 05/18/24 18:30 Glucagon (Glucagon For Inj 1 Mg Vial) 1 mg SQ UD PRN; Protocol PRN Reason: Hypoglycemia Protocol Stop: 05/18/24 18:30 Glucose (Glucose 40% Gel 15 Gm Tube) 15 - 30 gm PO UD PRN; Protocol PRN Reason: Hypoglycemia Protocol Stop: 05/18/24 18:30 Glucose (Glucose 10 Tab/Tube) 4 - 8 tab PO UD PRN; Protocol PRN Reason: Hypoglycemia Treatment Stop: 05/18/24 18:30 Sodium Chloride (Nss) 1,000 mls @ 50 mls/hr IV .Q20H VICTORIA Stop: 04/19/24 14:30 Last Admin: 04/18/24 19:21 Dose: 50 mls/hr Cefepime HCl 2,000 mg/ Syringe 20 mls @ 5 mls/min IV Q8H VICTORIA; Protocol Stop: 04/26/24 09:59 Last Admin: 04/19/24 10:25 Dose: 5 mls/min Insulin Aspart (Insulin Aspart Per Unit Charge) 0 units SC ACHS VICTORIA Stop: 05/18/24 18:30 Last Admin: 04/19/24 10:17 Dose: 2 units Lactobacillus Acidophilus (Advanced Probiotic 625 Mg Capsule) 1,250 mg PO DAILY VICTORIA Stop: 05/19/24 08:59 Last Admin: 04/19/24 08:42 Dose: 1,250 mg Magnesium Oxide (Magnesium Oxide 400 Mg Tab) 800 mg PO TID VICTORIA Stop: 05/18/24 20:59 Last Admin: 04/19/24 10:17 Dose: 800 mg Melatonin (Melatonin 3 Mg Tab) 6 mg PO HS PRN PRN Reason: Sleep Stop: 05/18/24 20:59 Metoprolol Tartrate (Metoprolol Tartrate 50 Mg Tab) 50 mg PO BID VICTORIA Stop: 05/18/24 20:59 Last Admin: 04/19/24 08:42 Dose: 50 mg Miscellaneous (Carbohydrates For Hypoglycemia ) 15 - 30 gm PO UD PRN PRN Reason: Hypoglycemia Protocol Stop: 05/18/24 18:30 Ondansetron HCl (Ondansetron Inj 2 Mg/Ml 2 Ml Vial) 4 mg IV Q6H PRN PRN Reason: Nausea Stop: 05/18/24 18:30 Polyethylene Glycol (Polyethylene (Miralax) 17 Gm Pack) 17 gm PO DAILY PRN PRN Reason: Constipation Stop: 05/18/24 18:30 (1) Sepsis Sepsis acute organ dysfunction status: without acute organ dysfunction Sepsis type: sepsis due to unspecified organism Qualified Code(s): A41.9 - Sepsis, unspecified organism
[2024-04-19] MEDS: LORazepam 0.5 MG TAB PO PRN (20:53)
--- NOTE | 2024-04-19 23:44 | Communication Note ---
Date of Service: April 19, 2024 Patient bradycardic heart rate 40s during sleep as per RN. AP Asymptomatic bradycardia Decrease maintenance beta-cuba dose. Check TSH from lab blood
[2024-04-20] MEDS: FAMOTIDINE 20 MG TAB PO PRN (06:11)
[2024-04-20] MEDS: LORazepam 0.5 MG TAB PO PRN (06:44)
[2024-04-20 06:47] LABS: Basophils # (auto) 0.01 K/uL (0.00-0.20); Basophils % (auto) 0.1 %; Eosinophils # (auto) 0.01 K/uL (0.00-0.50); Eosinophils % (auto) 0.1 %; Hematocrit (blood only) 32.6 % (37.0-47.0); Hemoglobin 10.7 g/dl (12.0-16.0); Immature Granulocytes # (auto) 0.09 K/uL (0.01-0.20); Immature Granulocytes % (auto) 0.7 %; Lymphocytes # (auto) 1.34 K/uL (1.20-3.40); Lymphocytes % (auto) 9.7 %; Mean Corpuscular Hemoglobin 30.1 pg (25.0-34.0); Mean Corpuscular Hgb Conc 32.8 g/dL (32.0-36.0); Mean Corpuscular Volume 91.6 fL (80.0-100.0); Mean Platelet Volume 11.2 fL (9.4-12.4); Monocytes # (auto) 0.86 K/uL (0.11-0.59); Monocytes % (auto) 6.2 %; Neutrophils # (auto) 11.47 K/uL (1.40-6.50); Neutrophils % (auto) 83.2 %; Platelet Count 276 K/uL (130-400); RDW Coefficient of Variation 13.8 % (11.5-14.5); RDW Standard Deviation 46.8 fL (36.4-46.3); Red Blood Count 3.56 M/uL (4.20-5.40); White Blood Count 13.78 K/ul (4.8-10.8)
[2024-04-20 07:01] LABS: BUN Creatinine Ratio 32.2 (10-20); Calcium 8.7 mg/dl (8.6-10.3); Creatinine Clr Calc Pharmacy 114.9 ml/min; Est GFR (African American) 120.4 ml/min; Est GFR (Non-African American) 103.9 ml/min; Phosphorus 2.7 mg/dl (2.5-4.9); Potassium 3.9 mmol/L (3.5-5.1)
[2024-04-20 07:16] LABS: Thyroid Stimulating Hormone 4.113 uIu/ml (0.300-4.500)
[2024-04-20] MEDS: METOPROLOL TARTRATE 25 MG TAB PO SCH (07:56)
[2024-04-20] MEDS: ACETAMINOPHEN 325 MG TAB PO PRN (08:05)
[2024-04-20] MEDS: PANTOprazole 40 MG TAB PO SCH (11:45)
[2024-04-20] MEDS: lisinopril 5 MG TAB PO SCH (11:45)
--- NOTE | 2024-04-20 14:29 | Hospitalist Progress Note ---
Date of Service April 20, 2024 Assessment & Plan (1) Sepsis: (2) Multifocal pneumonia: (3) Anemia: (4) Diabetes mellitus: (5) Hypertension: Plan This is a 54 yr old F who has a significant PMH of T2DM, premature FH of CAD, HTN, HLD and anxiety who presents to the ED 2/2 fever and cough. Pt met Sepsis criteria per current CMS guidelines in setting of fever, leukocytosis and evidence of PNA. She received broad spectrum antibiotics with IV rocephin and doxy along with 2L of IVF. She does not have a lactic acidosis. Sepsis Multifocal PNA IV Zosyn and doxycycline MRSA swab-Is negative, Received gentle IVF x 1 L then d/c Has been on nebs, flutter valve, spirometry and muccinex recently tested + for adeno/rhinovirus-CTA did not show any evidence of pulmonary embolism She has history of allergy to penicillin involving generalized hives and swelling of the lips and throat Received 1 dose of Zosyn in the emergency room and also received steroid Will discontinue Zosyn and start cefepime to cover possible Pseudomonas as well She has been feeling much better since admission A little worse today with diarrhea and feeling generally unwell without any shortness of breath Has been saturating normally on room air and has been eating and drinking well Medications adjustment Her medications doses and timing was discussed with her in detail and those were adjusted She will not be getting metformin and also Ozempic while in the hospital She will have insulin subcu for better control of diabetes while in the hospital HTN: chronic, stable, continue metoprolol, lisinopril HLD: chronic, stable on statin T2DM: unknown a1c,-Hemoglobin A1c 6.7 Hold ozempic and metformin, sliding scale insulin Abnormal CT chest: There is an indeterminate 2.9 cm asymmetric soft tissue opacity in the left breast as compared to the right. This is not well evaluated by CT and may represent normal lung parenchyma. Nonemergent mammographic correlation is recommended. pt reports dense breasts and is due for mammo Minimal fluid bilaterally in pleural space Doubt anything drainable Will get chest x-ray prior to discharge to see the improvement of pneumonia DVT ppx: SQ Lovenox FULL CODE PCP: Wilton De Luna Dispo: admit to med tele Admission and Anticipated Discharge Date Admission Date: April 18, 2024 Subjective 04/19/2024 The patient was seen and examined in medical telemetry unit She was admitted with fever and chills and weakness which has been going on since Tuesday evening She has been getting much better since admission with intravenous antibiotic Denies any cough or any shortness of breath at rest 04/20/2024 The patient was seen and examined in medical telemetry unit She has been worse this morning with increasing diarrhea and flushing and wea lynette She wanted to have her medications taken as she was taking at home She felt better following the conversation Review of Systems Review of Systems: All systems reviewed and are unremarkable except as noted below Physical Exam Physical Exam: Sitting at the edge of the bed without any acute distress Constitutional: well developed, well nourished, + ill appearing and average body habitus Eyes: PERRL, conjunctivae normal, anicteric sclerae ENMT: external ear and nose normal, oropharynx normal Neck: trachea midline, no thyromegaly Respiratory: + respiratory distress (Minimal distress at rest) Auscultation: + diminished lung sounds and + crackles (Bibasilar crackles more on the left than the right) Cardiovascular: Rate/Rhythm: regular rate and regular rhythm; not tachycardic Heart Sounds: normal S1 and normal S2; no murmur Extremities: no edema Gastrointestinal (Abdomen): Inspection/Auscultation: normal bowel sounds; abdomen not distended Percussion/Palpation: abdomen soft; abdomen nontender Neurologic: normal touch/pain/proprioception and moves all extremities; no focal motor deficits Psychiatric: A+Ox3, euthymic affect Lymphatic: no cervical or axillary lymphadenopathy Results & Data Results & Data Vital Signs (Past 12 Hours) Vital Signs Temp Pulse Pulse Resp BP Pulse Ox O2 Del Method 04/20/24 12:34 36.8 C 58 L 16 132/81 Room Air 04/20/24 08:14 36.3 C L 68 18 145/81 H 97 Room Air 04/20/24 08:06 Room Air 04/20/24 07:53 36.4 C L 68 164/96 H 96 Room Air 04/20/24 07:31 55 L 04/20/24 03:48 36.4 C L 50 L 17 145/88 H 97 Room Air Laboratory Results Short CBC 04/20/24 Range/Units 06:07 WBC 13.78 H (4.8-10.8) K/ul Hgb 10.7 L (12.0-16.0) g/dl Hct 32.6 L (37.0-47.0) % Plt Count 276 (130-400) K/uL BMP 04/20/24 06:07 Sodium 140 Potassium 3.9 Chloride 110 H Carbon Dioxide 24 BUN 19 Creatinine 0.59 L Glucose 125 H Calcium 8.7 Medications Administered Current Inpatient Medications Acetaminophen (Acetaminophen 325 Mg Tab) 650 mg PO Q4H PRN PRN Reason: Pain or Fever Stop: 05/18/24 18:30 Last Admin: 04/20/24 08:05 Dose: 650 mg Albuterol (Albuterol 0.083% Nebu Soln 3 Ml Vial) 2.5 mg NEB Q6H PRN; Protocol PRN Reason: Shortness Of Breath Or Wheezing Stop: 05/18/24 18:30 Last Admin: 04/19/24 05:27 Dose: 2.5 mg Ascorbic Acid (Ascorbic Acid 500 Mg Tab) 250 mg PO HS [facility] Stop: 05/20/24 20:59 Atorvastatin Calcium (Atorvastatin 10 Mg Tab) 10 mg PO HS [facility] Stop: 05/18/24 20:59 Last Admin: 04/19/24 20:45 Dose: 10 mg Benzonatate (Benzonatate 100 Mg Capsule) 100 mg PO TID PRN PRN Reason: Cough Stop: 05/18/24 18:30 Calcium/Vitamin D (Calcium 600mg + Vit D 400 Iu Tab) 2 tab PO DAILY [facility] Stop: 05/21/24 08:59 Cetirizine HCl (Cetirizine Hcl 10 Mg Tablet) 10 mg PO DAILY [facility] Stop: 05/19/24 08:59 Last Admin: 04/20/24 07:55 Dose: 10 mg Dextrose (Dextrose 50% 50 Ml Syringe) 25 - 50 ml IV UD PRN; Protocol PRN Reason: Hypoglycemia Protocol Stop: 05/18/24 18:30 Doxycycline Hyclate (Doxycycline Hyclate 100 Mg Cap) 100 mg PO BID [facility] Stop: 04/25/24 20:59 Last Admin: 04/20/24 07:56 Dose: 100 mg Enoxaparin Sodium (Enoxaparin Inj 40 Mg/0.4 Ml Syr) 40 mg SQ HS [facility] Stop: 05/18/24 20:59 Last Admin: 04/19/24 20:46 Dose: 40 mg Famotidine (Famotidine 20 Mg Tab) 20 mg PO DAILY [facility] Stop: 05/21/24 08:59 Ferrous Sulfate (Ferrous Sulfate 325 Mg Tab) 325 mg PO HS [facility] Stop: 05/20/24 20:59 Glucagon (Glucagon For Inj 1 Mg Vial) 1 mg SQ UD PRN; Protocol PRN Reason: Hypoglycemia Protocol Stop: 05/18/24 18:30 Glucose (Glucose 40% Gel 15 Gm Tube) 15 - 30 gm PO UD PRN; Protocol PRN Reason: Hypoglycemia Protocol Stop: 05/18/24 18:30 Glucose (Glucose 10 Tab/Tube) 4 - 8 tab PO UD PRN; Protocol PRN Reason: Hypoglycemia Treatment Stop: 05/18/24 18:30 Cefepime HCl 2,000 mg/ Syringe 20 mls @ 5 mls/min IV Q8H [facility]; Protocol Stop: 04/26/24 09:59 Last Admin: 04/20/24 10:28 Dose: 5 mls/min Insulin Aspart (Insulin Aspart Per Unit Charge) 0 units SC ACHS [facility] Stop: 05/18/24 18:30 Last Admin: 04/20/24 12:48 Dose: Not Given Lactobacillus Acidophilus (Advanced Probiotic 625 Mg Capsule) 1,250 mg PO DAILY [facility] Stop: 05/19/24 08:59 Last Admin: 04/20/24 07:56 Dose: 1,250 mg Lisinopril (Lisinopril 5 Mg Tab) 5 mg PO QAM [facility] Stop: 05/20/24 09:59 Last Admin: 04/20/24 11:45 Dose: 5 mg Lorazepam (Lorazepam 0.5 Mg Tab) 0.5 mg PO TID PRN PRN Reason: Anxiety Stop: 05/19/24 17:42 Last Admin: 04/20/24 06:44 Dose: 0.5 mg Magnesium Oxide (Magnesium Oxide 400 Mg Tab) 800 mg PO TID [facility] Stop: 05/18/24 20:59 Last Admin: 04/20/24 11:47 Dose: 800 mg Melatonin (Melatonin 3 Mg Tab) 6 mg PO HS PRN PRN Reason: Sleep Stop: 05/18/24 20:59 Metoprolol Tartrate (Metoprolol Tartrate 25 Mg Tab) 25 mg PO BID [facility] Stop: 05/20/24 08:59 Last Admin: 04/20/24 07:56 Dose: 25 mg Miscellaneous (Carbohydrates For Hypoglycemia ) 15 - 30 gm PO UD PRN PRN Reason: Hypoglycemia Protocol Stop: 05/18/24 18:30 Ondansetron HCl (Ondansetron Inj 2 Mg/Ml 2 Ml Vial) 4 mg IV Q6H PRN PRN Reason: Nausea Stop: 05/18/24 18:30 Pantoprazole Sodium (Pantoprazole 40 Mg Tab) 40 mg PO QAM [facility] Stop: 05/20/24 09:59 Last Admin: 04/20/24 11:45 Dose: 40 mg Polyethylene Glycol (Polyethylene (Miralax) 17 Gm Pack) 17 gm PO DAILY PRN PRN Reason: Constipation Stop: 05/18/24 18:30 (1) Sepsis Sepsis acute organ dysfunction status: without acute organ dysfunction Sepsis type: sepsis due to unspecified organism Qualified Code(s): A41.9 - Sepsis, unspecified organism
[2024-04-20] MEDS: LACTATED RINGER'S 1,000 ML IV SCH (17:32)
[2024-04-20] MEDS: FERROUS SULFATE 325 MG TAB PO SCH (19:51)
[2024-04-20] MEDS: ASCORBIC ACID 500 MG TAB PO SCH (19:53)
[2024-04-20] MEDS ORDERED: VITRON C PO SCH (21:00)
[2024-04-20] MEDS: CALCIUM 600MG + VIT D 400 IU TAB PO SCH (21:24)
[2024-04-20] MEDS: MELATONIN 3 MG TAB PO PRN (21:25)
--- NOTE | 2024-04-20 22:52 | Electrocardiogram Report ---
Test Reason : Blood Pressure : */* mmHG Vent. Rate : 49 BPM Atrial Rate : 49 BPM P-R Int : 120 ms QRS Dur : 86 ms QT Int : 504 ms P-R-T Axes : 23 42 34 degrees QTcB Int : 455 ms Sinus bradycardia Low voltage QRS Borderline ECG When compared with ECG of 18-Apr-2024 09:21, Vent. rate has decreased by 29 bpm Nonspecific T wave abnormality no longer evident in Lateral leads Confirmed by Prince Cruz ([id number]) on 04/20/2024 10:51:59 PM Referred By: REFERRED SELF Confirmed By: Prince Cruz
[2024-04-21] MEDS: BENZONATATE 100 MG CAPSULE PO PRN (05:11)
[2024-04-21 06:38] LABS: Adenovirus F 40/41 PCR Not Detected (NotDetected); Astrovirus PCR Not Detected (NotDetected); Campylobacter PCR Not Detected (NotDetected); Cryptosporidium PCR Not Detected (NotDetected); Cyclospora cayetanensis PCR Not Detected (NotDetected); Entamoeba histolytica PCR Not Detected (NotDetected); Enteroaggregative E.coli(EAEC) Not Detected (NotDetected); Enteropathogenic E.coli (EPEC) Not Detected (NotDetected); Enterotoxigenic E.coli (ETEC) Not Detected (NotDetected); Giardia lamblia PCR Not Detected (NotDetected); Norovirus GI/GII PCR Not Detected (NotDetected); Plesiomonas shigelloides PCR Not Detected (NotDetected); Rotavirus A PCR Not Detected (NotDetected); Salmonella PCR Not Detected (NotDetected); Sapovirus PCR Not Detected (NotDetected); Shiga-like Toxin E.coli (STEC) Not Detected (NotDetected); Shigella/Enteroinvasive E.coli Not Detected (NotDetected); Vibrio cholerae PCR Not Detected (NotDetected); Vibrio species PCR Not Detected (NotDetected); Yersinia enterocolitica PCR Not Detected (NotDetected)
[2024-04-21 07:20] LABS: Basophils # (auto) 0.01 K/uL (0.00-0.20); Basophils % (auto) 0.1 %; Eosinophils # (auto) 0.02 K/uL (0.00-0.50); Eosinophils % (auto) 0.1 %; Hematocrit (blood only) 30.7 % (37.0-47.0); Hemoglobin 10.3 g/dl (12.0-16.0); Immature Granulocytes # (auto) 0.13 K/uL (0.01-0.20); Immature Granulocytes % (auto) 0.9 %; Lymphocytes # (auto) 1.56 K/uL (1.20-3.40); Lymphocytes % (auto) 11.4 %; Mean Corpuscular Hemoglobin 30.4 pg (25.0-34.0); Mean Corpuscular Hgb Conc 33.6 g/dL (32.0-36.0); Mean Corpuscular Volume 90.6 fL (80.0-100.0); Mean Platelet Volume 11.2 fL (9.4-12.4); Monocytes # (auto) 0.92 K/uL (0.11-0.59); Monocytes % (auto) 6.7 %; Neutrophils # (auto) 11.08 K/uL (1.40-6.50); Neutrophils % (auto) 80.8 %; Platelet Count 311 K/uL (130-400); RDW Standard Deviation 46.4 fL (36.4-46.3); Red Blood Count 3.39 M/uL (4.20-5.40); White Blood Count 13.72 K/ul (4.8-10.8)
[2024-04-21] MEDS: FAMOTIDINE 20 MG TAB PO SCH (07:35)
[2024-04-21 07:39] LABS: BUN Creatinine Ratio 23.5 (10-20); Calcium 8.5 mg/dl (8.6-10.3); Creatinine Clr Calc Pharmacy 131.8 ml/min; Est GFR (African American) 126.3 ml/min; Magnesium 1.7 mg/dl (1.7-2.4); Phosphorus 2.7 mg/dl (2.5-4.9); Potassium 3.6 mmol/L (3.5-5.1)
[2024-04-21] MEDS ORDERED: CALCIUM 600MG + VIT D 400 IU TAB PO SCH (09:00)
[2024-04-21] MEDS: LOPERAMIDE HCL 2 MG CAP PO PRN (11:42)
--- NOTE | 2024-04-21 13:49 | Hospitalist Progress Note ---
Date of Service April 21, 2024 Assessment & Plan (1) Sepsis: (2) Multifocal pneumonia: (3) Anemia: (4) Diabetes mellitus: (5) Hypertension: Plan This is a 54 yr old F who has a significant PMH of T2DM, premature FH of CAD, HTN, HLD and anxiety who presents to the ED 2/2 fever and cough. Pt met Sepsis criteria per current CMS guidelines in setting of fever, leukocytosis and evidence of PNA. She received broad spectrum antibiotics with IV rocephin and doxy along with 2L of IVF. She does not have a lactic acidosis. Sepsis Multifocal PNA IV Zosyn and doxycycline MRSA swab-Is negative, Received gentle IVF x 1 L then d/c Has been on nebs, flutter valve, spirometry and muccinex recently tested + for adeno/rhinovirus-CTA did not show any evidence of pulmonary embolism She has history of allergy to penicillin involving generalized hives and swelling of the lips and throat Received 1 dose of Zosyn in the emergency room and also received steroid Will discontinue Zosyn and start cefepime to cover possible Pseudomonas as well She has been feeling much better since admission A little worse today with diarrhea and feeling generally unwell without any shortness of breath Has been saturating normally on room air and has been eating and drinking well Clinically much better without any fever and no chills and the white count has improved a lot Advised to ambulate more and may be discharged tomorrow She continues to have diarrhea C. difficile toxins x 2 have been negative and stool culture has been negative too Diarrhea seems to be secondary to use of antibiotics Medications adjustment Her medications doses and timing was discussed with her in detail and those were adjusted She will not be getting metformin and also Ozempic while in the hospital She will have insulin subcu for better control of diabetes while in the hospital HTN: chronic, stable, continue metoprolol, lisinopril HLD: chronic, stable on statin T2DM: unknown a1c,-Hemoglobin A1c 6.7 Hold ozempic and metformin, sliding scale insulin Abnormal CT chest: There is an indeterminate 2.9 cm asymmetric soft tissue opacity in the left breast as compared to the right. This is not well evaluated by CT and may represent normal lung parenchyma. Nonemergent mammographic correlation is recommended. pt reports dense breasts and is due for mammo Minimal fluid bilaterally in pleural space Doubt anything drainable Will get chest x-ray prior to discharge to see the improvement of pneumonia DVT ppx: SQ Lovenox FULL CODE PCP: Wilton De Luna Dispo: admit to [facility] tele Admission and Anticipated Discharge Date Admission Date: April 18, 2024 Subjective 04/19/2024 The patient was seen and examined in medical telemetry unit She was admitted with fever and chills and weakness which has been going on since Tuesday evening She has been getting much better since admission with intravenous antibiotic Denies any cough or any shortness of breath at rest 04/20/2024 The patient was seen and examined in medical telemetry unit She has been worse this morning with increasing diarrhea and flushing and weakness She wanted to have her medications taken as she was taking at home She felt better following the conversation 04/21/2024 The patient was seen and examined in medical telemetry unit She has been feeling a little better but is still having profuse diarrhea Repeat C. difficile toxin has been negative Denies any fever and/or chills and no nausea and/or vomiting Review of Systems Review of Systems: All systems reviewed and are unremarkable except as noted below Physical Exam Physical Exam: Sitting at the edge of the bed without any acute distress Constitutional: well developed, well nourished, + ill appearing and average body habitus Eyes: PERRL, conjunctivae normal, anicteric sclerae ENMT: external ear and nose normal, oropharynx normal Neck: trachea midline, no thyromegaly Respiratory: + respiratory distress (Minimal distress at rest) Auscultation: + diminished lung sounds and + crackles (Bibasilar crackles more on the left than the right) Cardiovascular: Rate/Rhythm: regular rate and regular rhythm; not tachycardic Heart Sounds: normal S1 and normal S2; no murmur Extremities: no edema Gastrointestinal (Abdomen): Inspection/Auscultation: normal bowel sounds; abdomen not distended Percussion/Palpation: abdomen soft; abdomen nontender Neurologic: normal touch/pain/proprioception and moves all extremities; no focal motor deficits Psychiatric: A+Ox3, euthymic affect Lymphatic: no cervical or axillary lymphadenopathy Results & Data Results & Data Vital Signs (Past 12 Hours) Vital Signs Temp Pulse Pulse Resp BP Pulse Ox Pulse Ox 04/21/24 10:57 36.4 C L 72 136/75 93 04/21/24 07:54 76 18 98 04/21/24 07:46 04/21/24 07:46 95 04/21/24 07:31 36.9 C 72 138/78 95 04/21/24 07:19 66 04/21/24 03:51 36.6 C 62 18 108/62 93 O2 Del Method O2 Del Method 04/21/24 10:57 Room Air 04/21/24 07:54 Room Air 04/21/24 07:46 Room Air 04/21/24 07:46 Room Air 04/21/24 07:31 Room Air 04/21/24 07:19 04/21/24 03:51 Room Air Laboratory Results Short CBC 04/21/24 Range/Units 06:09 WBC 13.72 H (4.8-10.8) K/ul Hgb 10.3 L (12.0-16.0) g/dl Hct 30.7 L (37.0-47.0) % Plt Count 311 (130-400) K/uL BMP 04/21/24 06:09 Sodium 141 Potassium 3.6 Chloride 109 H Carbon Dioxide 25 BUN 12 Creatinine 0.51 L Glucose 121 H Calcium 8.5 L Medications Administered Current Inpatient Medications Acetaminophen (Acetaminophen 325 Mg Tab) 650 mg PO Q4H PRN PRN Reason: Pain or Fever Stop: 05/18/24 18:30 Last Admin: 04/21/24 05:11 Dose: 650 mg Albuterol (Albuterol 0.083% Nebu Soln 3 Ml Vial) 2.5 mg NEB Q6H PRN; Protocol PRN Reason: Shortness Of Breath Or Wheezing Stop: 05/18/24 18:30 Last Admin: 04/21/24 07:53 Dose: 2.5 mg Ascorbic Acid (Ascorbic Acid 500 Mg Tab) 250 mg PO HS [facility] Stop: 05/20/24 20:59 Last Admin: 04/20/24 19:53 Dose: 250 mg Atorvastatin Calcium (Atorvastatin 10 Mg Tab) 10 mg PO HS [facility] Stop: 05/18/24 20:59 Last Admin: 04/20/24 19:53 Dose: 10 mg Benzonatate (Benzonatate 100 Mg Capsule) 100 mg PO TID PRN PRN Reason: Cough Stop: 05/18/24 18:30 Last Admin: 04/21/24 05:11 Dose: 100 mg Calcium/Vitamin D (Calcium 600mg + Vit D 400 Iu Tab) 1 tab PO BID [facility] Stop: 05/20/24 20:59 Last Admin: 04/21/24 07:35 Dose: 1 tab Cetirizine HCl (Cetirizine Hcl 10 Mg Tablet) 10 mg PO DAILY [facility] Stop: 05/19/24 08:59 Last Admin: 04/21/24 07:35 Dose: 10 mg Dextrose (Dextrose 50% 50 Ml Syringe) 25 - 50 ml IV UD PRN; Protocol PRN Reason: Hypoglycemia Protocol Stop: 05/18/24 18:30 Doxycycline Hyclate (Doxycycline Hyclate 100 Mg Cap) 100 mg PO BID [facility] Stop: 04/25/24 20:59 Last Admin: 04/21/24 07:36 Dose: 100 mg Enoxaparin Sodium (Enoxaparin Inj 40 Mg/0.4 Ml Syr) 40 mg SQ HS [facility] Stop: 05/18/24 20:59 Last Admin: 04/20/24 19:55 Dose: 40 mg Famotidine (Famotidine 20 Mg Tab) 20 mg PO DAILY [facility] Stop: 05/21/24 08:59 Last Admin: 04/21/24 07:35 Dose: 20 mg Ferrous Sulfate (Ferrous Sulfate 325 Mg Tab) 325 mg PO HS [facility] Stop: 05/20/24 20:59 Last Admin: 04/20/24 19:51 Dose: 325 mg Glucagon (Glucagon For Inj 1 Mg Vial) 1 mg SQ UD PRN; Protocol PRN Reason: Hypoglycemia Protocol Stop: 05/18/24 18:30 Glucose (Glucose 40% Gel 15 Gm Tube) 15 - 30 gm PO UD PRN; Protocol PRN Reason: Hypoglycemia Protocol Stop: 05/18/24 18:30 Glucose (Glucose 10 Tab/Tube) 4 - 8 tab PO UD PRN; Protocol PRN Reason: Hypoglycemia Treatment Stop: 05/18/24 18:30 Cefepime HCl 2,000 mg/ Syringe 20 mls @ 5 mls/min IV Q8H [facility]; Protocol Stop: 04/26/24 09:59 Last Admin: 04/21/24 09:32 Dose: 5 mls/min Lactated Ringer's (Lr) 1,000 mls @ 80 mls/hr IV .[id number] [facility] Stop: 04/22/24 06:29 Last Admin: 04/21/24 05:11 Dose: 80 mls/hr Insulin Aspart (Insulin Aspart Per Unit Charge) 0 units SC ACHS [facility] Stop: 05/18/24 18:30 Last Admin: 04/21/24 12:57 Dose: Not Given Lactobacillus Acidophilus (Advanced Probiotic 625 Mg Capsule) 1,250 mg PO DAILY [facility] Stop: 05/19/24 08:59 Last Admin: 04/21/24 07:36 Dose: 1,250 mg Lisinopril (Lisinopril 5 Mg Tab) 5 mg PO QAM [facility] Stop: 05/20/24 09:59 Last Admin: 04/21/24 07:37 Dose: 5 mg Loperamide HCl (Loperamide Hcl 2 Mg Cap) 2 mg PO Q3H PRN PRN Reason: Diarrhea Stop: 05/21/24 11:24 Last Admin: 04/21/24 11:42 Dose: 2 mg Lorazepam (Lorazepam 0.5 Mg Tab) 0.5 mg PO TID PRN PRN Reason: Anxiety Stop: 05/19/24 17:42 Last Admin: 04/21/24 05:11 Dose: 0.5 mg Magnesium Oxide (Magnesium Oxide 400 Mg Tab) 800 mg PO TID [facility] Stop: 05/18/24 20:59 Last Admin: 04/21/24 13:24 Dose: 800 mg Melatonin (Melatonin 3 Mg Tab) 6 mg PO HS PRN PRN Reason: Sleep Stop: 05/18/24 20:59 Last Admin: 04/20/24 21:25 Dose: 6 mg Metoprolol Tartrate (Metoprolol Tartrate 25 Mg Tab) 25 mg PO BID [facility] Stop: 05/20/24 08:59 Last Admin: 04/21/24 07:36 Dose: 25 mg Miscellaneous (Carbohydrates For Hypoglycemia ) 15 - 30 gm PO UD PRN PRN Reason: Hypoglycemia Protocol Stop: 05/18/24 18:30 Ondansetron HCl (Ondansetron Inj 2 Mg/Ml 2 Ml Vial) 4 mg IV Q6H PRN PRN Reason: Nausea Stop: 05/18/24 18:30 Pantoprazole Sodium (Pantoprazole 40 Mg Tab) 40 mg PO QAM [facility] Stop: 05/20/24 09:59 Last Admin: 04/21/24 07:36 Dose: 40 mg Polyethylene Glycol (Polyethylene (Miralax) 17 Gm Pack) 17 gm PO DAILY PRN PRN Reason: Constipation Stop: 05/18/24 18:30 (1) Sepsis Sepsis acute organ dysfunction status: without acute organ dysfunction Sepsis type: sepsis due to unspecified organism Qualified Code(s): A41.9 - Sepsis, unspecified organism
[2024-04-21] MEDS: POTASSIUM CHLORIDE CRTAB 20 MEQ TABCR PO STA (16:01)
[2024-04-21] MEDS: PHENAZOPYRIDINE HCL 100 MG TAB PO PRN (17:57)
[2024-04-21] MEDS: HYDROCORTISONE 1% CRM 30 GM TUBE EXT SCH (20:40)
--- NOTE | 2024-04-22 09:58 | XRay Report ---
TWO VIEW CHEST CLINICAL HISTORY: Follow-up pneumonia. FINDINGS: PA and lateral chest radiographs are compared to study dated 04/18/2024 chest x-ray and ches t CT. The cardiomediastinal silhouette is unremarkable. Again seen is dense airspace consolidation th roughout the left lower lobe. Trace left pleural effusion is observed. The right lung is clear as see n by x-ray. There is no pneumothorax. The bony thorax appears intact. IMPRESSION: 1. Again seen is dense left lower lobe airspace consolidation. This has minimally cleared as compared to 04/18/2024. 2. Small left pleural effusion. ACT 112: Negative or not required by law. Electronically signed by: Zion Boston M.D. 04/22/2024 9:56 AM
[2024-04-22 10:19] LABS: Basophils # (auto) 0.03 K/uL (0.00-0.20); Basophils % (auto) 0.2 %; Eosinophils # (auto) 0.04 K/uL (0.00-0.50); Eosinophils % (auto) 0.2 %; Hematocrit (blood only) 37.1 % (37.0-47.0); Hemoglobin 11.7 g/dl (12.0-16.0); Immature Granulocytes # (auto) 0.38 K/uL (0.01-0.20); Immature Granulocytes % (auto) 2.3 %; Lymphocytes # (auto) 1.66 K/uL (1.20-3.40); Mean Corpuscular Hemoglobin 29.4 pg (25.0-34.0); Mean Corpuscular Hgb Conc 31.5 g/dL (32.0-36.0); Mean Corpuscular Volume 93.2 fL (80.0-100.0); Mean Platelet Volume 10.3 fL (9.4-12.4); Monocytes # (auto) 0.74 K/uL (0.11-0.59); Monocytes % (auto) 4.5 %; Neutrophils # (auto) 13.74 K/uL (1.40-6.50); Neutrophils % (auto) 82.8 %; Platelet Count 415 K/uL (130-400); RDW Coefficient of Variation 13.6 % (11.5-14.5); RDW Standard Deviation 46.5 fL (36.4-46.3); Red Blood Count 3.98 M/uL (4.20-5.40); White Blood Count 16.59 K/ul (4.8-10.8)
[2024-04-22 10:37] LABS: BUN Creatinine Ratio 18.5 (10-20); Calcium 9.2 mg/dl (8.6-10.3); Creatinine Clr Calc Pharmacy 126.7 ml/min; Potassium 3.8 mmol/L (3.5-5.1)
[2024-04-22] MEDS: CEFDINIR 300 MG CAP PO SCH (10:39)
--- NOTE | 2024-04-22 12:40 | Hospitalist Progress Note ---
Date of Service April 22, 2024 Assessment & Plan (1) Sepsis: (2) Multifocal pneumonia: (3) Anemia: (4) Diabetes mellitus: (5) Hypertension: Plan This is a 54 yr old F who has a significant PMH of T2DM, premature FH of CAD, HTN, HLD and anxiety who presents to the ED 2/2 fever and cough. Pt met Sepsis criteria per current CMS guidelines in setting of fever, leukocytosis and evidence of PNA. She received broad spectrum antibiotics with IV rocephin and doxy along with 2L of IVF. She does not have a lactic acidosis. Sepsis Multifocal PNA IV Zosyn and doxycycline MRSA swab-Is negative, Received gentle IVF x 1 L then d/c Has been on nebs, flutter valve, spirometry and muccinex recently tested + for adeno/rhinovirus-CTA did not show any evidence of pulmonary embolism She has history of allergy to penicillin involving generalized hives and swelling of the lips and throat Received 1 dose of Zosyn in the emergency room and also received steroid Will discontinue Zosyn and start cefepime to cover possible Pseudomonas as well She has been feeling much better since admission A little worse today with diarrhea and feeling generally unwell without any shortness of breath Has been saturating normally on room air and has been eating and drinking well Clinically much better without any fever and no chills and the white count has improved a lot Advised to ambulate more and may be discharged tomorrow Clinically much better with improvement of all of her symptoms Repeat chest x-ray do show improvement of the pneumonia White count is noted to be high at 16,000 She will have repeat CBC tomorrow and if that trend is downward she will be di scharged home She continues to have diarrhea C. difficile toxins x 2 have been negative and stool culture has been negative too Diarrhea seems to be secondary to use of antibiotics Medications adjustment Her medications doses and timing was discussed with her in detail and those were adjusted She will not be getting metformin and also Ozempic while in the hospital She will have insulin subcu for better control of diabetes while in the hospital HTN: chronic, stable, continue metoprolol, lisinopril HLD: chronic, stable on statin T2DM: unknown a1c,-Hemoglobin A1c 6.7 Hold ozempic and metformin, sliding scale insulin Abnormal CT chest: There is an indeterminate 2.9 cm asymmetric soft tissue opacity in the left breast as compared to the right. This is not well evaluated by CT and may represent normal lung parenchyma. Nonemergent mammographic correlation is recommended. pt reports dense breasts and is due for mammo Minimal fluid bilaterally in pleural space Doubt anything drainable Will get chest x-ray prior to discharge to see the improvement of pneumonia DVT ppx: SQ Lovenox FULL CODE PCP: Wilton De Luna Dispo: admit to med tele Admission and Anticipated Discharge Date Admission Date: April 18, 2024 Subjective 04/19/2024 The patient was seen and examined in medical telemetry unit She was admitted with fever and chills and weakness which has been going on since Tuesday evening She has been getting much better since admission with intravenous antibiotic Denies any cough or any shortness of breath at rest 04/20/2024 The patient was seen and examined in medical telemetry unit She has been worse this morning with increasing diarrhea and flushing and weakness She wanted to have her medications taken as she was taking at home She felt better following the conversation 04/21/2024 The patient was seen and examined in medical telemetry unit She has been feeling a little better but is still having profuse diarrhea Repeat C. difficile toxin has been negative Denies any fever and/or chills and no nausea and/or vomiting 04/22/2024 The patient was seen and examined in medical telemetry unit She has been feeling much better Diarrhea is controlled, cough with productive of whitish phlegm and denies any fever and or chills White count was noted to be high of 16,000 so she will not be going home this afternoon Review of Systems Review of Systems: All systems reviewed and are unremarkable except as noted below Physical Exam Physical Exam: Sitting at the edge of the bed without any acute distress Constitutional: well developed, well nourished, + ill appearing and average body habitus Eyes: PERRL, conjunctivae normal, anicteric sclerae ENMT: external ear and nose normal, oropharynx normal Neck: trachea midline, no thyromegaly Respiratory: + respiratory distress (Minimal distress at rest) Auscultation: + diminished lung sounds and + crackles (Bibasilar crackles more on the left than the right) Cardiovascular: Rate/Rhythm: regular rate and regular rhythm; not tachycardic Heart Sounds: normal S1 and normal S2; no murmur Extremities: no edema Gastrointestinal (Abdomen): Inspection/Auscultation: normal bowel sounds; abd omen not distended Percussion/Palpation: abdomen soft; abdomen nontender Neurologic: normal touch/pain/proprioception and moves all extremities; no focal motor deficits Psychiatric: A+Ox3, euthymic affect Lymphatic: no cervical or axillary lymphadenopathy Results & Data Results & Data Vital Signs (Past 12 Hours) Vital Signs Temp Pulse Pulse Resp BP Pulse Ox Pulse Ox 04/22/24 12:00 36.7 C 64 20 138/79 96 04/22/24 07:46 04/22/24 07:22 96 04/22/24 07:00 36.6 C 62 20 135/75 95 04/22/24 06:49 66 04/22/24 06:17 18 98 04/22/24 03:05 36.5 C 63 18 134/72 93 O2 Del Method O2 Del Method 04/22/24 12:00 Room Air 04/22/24 07:46 Room Air 04/22/24 07:22 Room Air 04/22/24 07:00 Room Air 04/22/24 06:49 04/22/24 06:17 Room Air 04/22/24 03:05 Room Air Laboratory Results Short CBC 04/22/24 Range/Units 09:55 WBC 16.59 H (4.8-10.8) K/ul Hgb 11.7 L (12.0-16.0) g/dl Hct 37.1 (37.0-47.0) % Plt Count 415 H (130-400) K/uL BMP 04/22/24 09:55 Sodium 140 Potassium 3.8 Chloride 106 Carbon Dioxide 26 BUN 10 Creatinine 0.54 L Glucose 202 H Calcium 9.2 Medications Administered Current Inpatient Medications Acetaminophen (Acetaminophen 325 Mg Tab) 650 mg PO Q4H PRN PRN Reason: Pain or Fever Stop: 05/18/24 18:30 Last Admin: 04/21/24 05:11 Dose: 650 mg Albuterol (Albuterol 0.083% Nebu Soln 3 Ml Vial) 2.5 mg NEB Q6H PRN; Protocol PRN Reason: Shortness Of Breath Or Wheezing Stop: 05/18/24 18:30 Last Admin: 04/22/24 06:17 Dose: 2.5 mg Ascorbic Acid (Ascorbic Acid 500 Mg Tab) 250 mg PO HS [facility] Stop: 05/20/24 20:59 Last Admin: 04/21/24 20:39 Dose: 250 mg Atorvastatin Calcium (Atorvastatin 10 Mg Tab) 10 mg PO HS [facility] Stop: 05/18/24 20:59 Last Admin: 04/21/24 20:39 Dose: 10 mg Benzonatate (Benzonatate 100 Mg Capsule) 100 mg PO TID PRN PRN Reason: Cough Stop: 05/18/24 18:30 Last Admin: 04/22/24 02:20 Dose: 100 mg Calcium/Vitamin D (Calcium 600mg + Vit D 400 Iu Tab) 1 tab PO BID [facility] Stop: 05/20/24 20:59 Last Admin: 04/22/24 07:17 Dose: 1 tab Cefdinir (Cefdinir 300 Mg Cap) 300 mg PO BID [facility]; Protocol Stop: 04/29/24 09:14 Last Admin: 04/22/24 10:39 Dose: 300 mg Cetirizine HCl (Cetirizine Hcl 10 Mg Tablet) 10 mg PO DAILY [facility] Stop: 05/19/24 08:59 Last Admin: 04/22/24 07:16 Dose: 10 mg Dextrose (Dextrose 50% 50 Ml Syringe) 25 - 50 ml IV UD PRN; Protocol PRN Reason: Hypoglycemia Protocol Stop: 05/18/24 18:30 Doxycycline Hyclate (Doxycycline Hyclate 100 Mg Cap) 100 mg PO BID [facility] Stop: 04/25/24 20:59 Last Admin: 04/22/24 07:16 Dose: 100 mg Enoxaparin Sodium (Enoxaparin Inj 40 Mg/0.4 Ml Syr) 40 mg SQ HS [facility] Stop: 05/18/24 20:59 Last Admin: 04/21/24 20:40 Dose: 40 mg Famotidine (Famotidine 20 Mg Tab) 20 mg PO DAILY [facility] Stop: 05/21/24 08:59 Last Admin: 04/22/24 07:16 Dose: 20 mg Ferrous Sulfate (Ferrous Sulfate 325 Mg Tab) 325 mg PO HS [facility] Stop: 05/20/24 20:59 Last Admin: 04/21/24 20:40 Dose: 325 mg Glucagon (Glucagon For Inj 1 Mg Vial) 1 mg SQ UD PRN; Protocol PRN Reason: Hypoglycemia Protocol Stop: 05/18/24 18:30 Glucose (Glucose 40% Gel 15 Gm Tube) 15 - 30 gm PO UD PRN; Protocol PRN Reason: Hypoglycemia Protocol Stop: 05/18/24 18:30 Glucose (Glucose 10 Tab/Tube) 4 - 8 tab PO UD PRN; Protocol PRN Reason: Hypoglycemia Treatment Stop: 05/18/24 18:30 Hydrocortisone (Hydrocortisone 1% Crm 30 Gm Tube) 1 appln EXT BID [facility] Stop: 05/21/24 20:59 Last Admin: 04/22/24 07:17 Dose: 1 appln Insulin Aspart (Insulin Aspart Per Unit Charge) 0 units SC ACHS [facility] Stop: 05/18/24 18:30 Last Admin: 04/22/24 11:47 Dose: Not Given Lactobacillus Acidophilus (Advanced Probiotic 625 Mg Capsule) 1,250 mg PO DAILY [facility] Stop: 05/19/24 08:59 Last Admin: 04/22/24 07:16 Dose: 1,250 mg Lisinopril (Lisinopril 5 Mg Tab) 5 mg PO QAM [facility] Stop: 05/20/24 09:59 Last Admin: 04/22/24 07:15 Dose: 5 mg Loperamide HCl (Loperamide Hcl 2 Mg Cap) 2 mg PO Q3H PRN PRN Reason: Diarrhea Stop: 05/21/24 11:24 Last Admin: 04/21/24 11:42 Dose: 2 mg Lorazepam (Lorazepam 0.5 Mg Tab) 0.5 mg PO TID PRN PRN Reason: Anxiety Stop: 05/19/24 17:42 Last Admin: 04/22/24 07:28 Dose: 0.5 mg Magnesium Oxide (Magnesium Oxide 400 Mg Tab) 800 mg PO TID [facility] Stop: 05/18/24 20:59 Last Admin: 04/22/24 07:16 Dose: 800 mg Melatonin (Melatonin 3 Mg Tab) 6 mg PO HS PRN PRN Reason: Sleep Stop: 05/18/24 20:59 Last Admin: 04/21/24 22:02 Dose: 6 mg Metoprolol Tartrate (Metoprolol Tartrate 25 Mg Tab) 25 mg PO BID [facility] Stop: 05/20/24 08:59 Last Admin: 04/22/24 07:16 Dose: 25 mg Miscellaneous (Carbohydrates For Hypoglycemia ) 15 - 30 gm PO UD PRN PRN Reason: Hypoglycemia Protocol Stop: 05/18/24 18:30 Ondansetron HCl (Ondansetron Inj 2 Mg/Ml 2 Ml Vial) 4 mg IV Q6H PRN PRN Reason: Nausea Stop: 05/18/24 18:30 Pantoprazole Sodium (Pantoprazole 40 Mg Tab) 40 mg PO QAM [facility] Stop: 05/20/24 09:59 Last Admin: 04/22/24 07:15 Dose: 40 mg Phenazopyridine HCl (Phenazopyridine Hcl 100 Mg Tab) 100 mg PO TID PRN PRN Reason: Dysuria Stop: 05/21/24 16:47 Last Admin: 04/22/24 07:15 Dose: 100 mg Polyethylene Glycol (Polyethylene (Miralax) 17 Gm Pack) 17 gm PO DAILY PRN PRN Reason: Constipation Stop: 05/18/24 18:30 (1) Sepsis Sepsis acute organ dysfunction status: without acute organ dysfunction Sepsis type: sepsis due to unspecified organism Qualified Code(s): A41.9 - Sepsis, unspecified organism
[2024-04-23 07:24] LABS: Basophils # (auto) 0.04 K/uL (0.00-0.20); Basophils % (auto) 0.3 %; Eosinophils # (auto) 0.09 K/uL (0.00-0.50); Eosinophils % (auto) 0.6 %; Hematocrit (blood only) 30.6 % (37.0-47.0); Hemoglobin 10.3 g/dl (12.0-16.0); Immature Granulocytes # (auto) 0.33 K/uL (0.01-0.20); Immature Granulocytes % (auto) 2.1 %; Lymphocytes # (auto) 1.97 K/uL (1.20-3.40); Lymphocytes % (auto) 12.6 %; Mean Corpuscular Hemoglobin 30.5 pg (25.0-34.0); Mean Corpuscular Hgb Conc 33.7 g/dL (32.0-36.0); Mean Corpuscular Volume 90.5 fL (80.0-100.0); Monocytes # (auto) 0.89 K/uL (0.11-0.59); Monocytes % (auto) 5.7 %; Neutrophils % (auto) 78.7 %; Platelet Count 449 K/uL (130-400); RDW Coefficient of Variation 13.4 % (11.5-14.5); RDW Standard Deviation 44.4 fL (36.4-46.3); Red Blood Count 3.38 M/uL (4.20-5.40); White Blood Count 15.62 K/ul (4.8-10.8)
--- NOTE | 2024-04-23 10:58 | Hospitalist Progress Note ---
Date of Service April 23, 2024 Assessment & Plan (1) Sepsis: (2) Multifocal pneumonia: (3) Anemia: (4) Diabetes mellitus: (5) Hypertension: Plan This is a 54 yr old F who has a significant PMH of T2DM, premature FH of CAD, HTN, HLD and anxiety who presents to the ED 2/2 fever and cough. Pt met Sepsis criteria per current CMS guidelines in setting of fever, leukocytosis and evidence of PNA. She received broad spectrum antibiotics with IV rocephin and doxy along with 2L of IVF. She does not have a lactic acidosis. Sepsis Multifocal PNA IV Zosyn and doxycycline MRSA swab-Is negative, Received gentle IVF x 1 L then d/c Has been on nebs, flutter valve, spirometry and muccinex recently tested + for adeno/rhinovirus-CTA did not show any evidence of pulmonary embolism She has history of allergy to penicillin involving generalized hives and swelling of the lips and throat Received 1 dose of Zosyn in the emergency room and also received steroid Will discontinue Zosyn and start cefepime to cover possible Pseudomonas as well She has been feeling much better since admission A little worse today with diarrhea and feeling generally unwell without any shortness of breath Has been saturating normally on room air and has been eating and drinking well Clinically much better without any fever and no chills and the white count has improved a lot Advised to ambulate more and may be discharged tomorrow Clinically much better with improvement of all of her symptoms Repeat chest x-ray do show improvement of the pneumonia White count is noted to be high at 16,000 She will have repeat CBC tomorrow and if that trend is downward she will be di scharged home Her white blood cell count is slightly better and she does not have any symptoms of infection, no fever no chills and denies any shortness of breath She will be discharged home this afternoon She continues to have diarrhea C. difficile toxins x 2 have been negative and stool culture has been negative too Diarrhea seems to be secondary to use of antibiotics Medications adjustment Her medications doses and timing was discussed with her in detail and those were adjusted She will not be getting metformin and also Ozempic while in the hospital She will have insulin subcu for better control of diabetes while in the hospital HTN: chronic, stable, continue metoprolol, lisinopril HLD: chronic, stable on statin T2DM: unknown a1c,-Hemoglobin A1c 6.7 Hold ozempic and metformin, sliding scale insulin Abnormal CT chest: There is an indeterminate 2.9 cm asymmetric soft tissue o pacity in the left breast as compared to the right. This is not well evaluated by CT and may represent normal lung parenchyma. Nonemergent mammographic correlation is recommended. pt reports dense breasts and is due for mammo Minimal fluid bilaterally in pleural space Doubt anything drainable Will get chest x-ray prior to discharge to see the improvement of pneumonia DVT ppx: SQ Lovenox FULL CODE PCP: Wilton De Luna Dispo: admit to med tele Admission and Anticipated Discharge Date Admission Date: April 18, 2024 Subjective 04/19/2024 The patient was seen and examined in medical telemetry unit She was admitted with fever and chills and weakness which has been going on since Tuesday She has been getting much better since admission with intravenous antibiotic Denies any cough or any shortness of breath at rest 04/20/2024 The patient was seen and examined in medical telemetry unit She has been worse this morning with increasing diarrhea and flushing and weakness She wanted to have her medications taken as she was taking at home She felt better following the conversation 04/21/2024 The patient was seen and examined in medical telemetry unit She has been feeling a little better but is still having profuse diarrhea Repeat C. difficile toxin has been negative Denies any fever and/or chills and no nausea and/or vomiting 04/22/2024 The patient was seen and examined in medical telemetry unit She has been feeling much better Diarrhea is controlled, cough with productive of whitish phlegm and denies any fever and or chills White count was noted to be high of 16,000 so she will not be going home this afternoon 04/23/2024 The patient was seen and examined in medical telemetry unit She has been feeling much better and has been ambulating in the hallway without any difficulties Cough is improved and does not have any fever and or chills and no shortness of breath Her white count has been improving Review of Systems Review of Systems: All systems reviewed and are unremarkable except as noted below Physical Exam Physical Exam: Sitting at the edge of the bed without any acute distress Constitutional: well developed, well nourished, + ill appearing and average body habitus Eyes: PERRL, conjunctivae normal, anicteric sclerae ENMT: external ear and nose normal, oropharynx normal Neck: trachea midline, no thyromegaly Respiratory: no respiratory distress (Minimal distress at rest) Auscultation: + crackles (Minimal crackles left base) Cardiovascular: Rate/Rhythm: regular rate and regular rhythm; not tachycardic Heart Sounds: normal S1 and normal S2; no murmur Extremities: no edema Gastrointestinal (Abdomen): Inspection/Auscultation: normal bowel sounds; abdomen not distended Percussion/Palpation: abdomen soft; abdomen nontender Musculoskeletal: No acute arthritis involving any of the joints Neurologic: normal touch/pain/proprioception and moves all extremities; no focal motor deficits Psychiatric: A+Ox3, euthymic affect Lymphatic: no cervical or axillary lymphadenopathy Results & Data Results & Data Vital Signs (Past 12 Hours) Vital Signs Temp Pulse Pulse Resp BP Pulse Ox O2 Del Method 04/23/24 08:43 36.7 C 49 L 20 136/75 97 Room Air 04/23/24 08:15 Room Air 04/23/24 07:18 65 04/23/24 03:55 36.7 C 61 20 148/87 H 95 Room Air 04/22/24 23:54 65 04/22/24 23:26 36.7 C 66 20 121/67 96 Room Air Laboratory Results Short CBC 04/23/24 Range/Units 06:25 WBC 15.62 H (4.8-10.8) K/ul Hgb 10.3 L (12.0-16.0) g/dl Hct 30.6 L (37.0-47.0) % Plt Count 449 H (130-400) K/uL Medications Administered Current Inpatient Medications Acetaminophen (Acetaminophen 325 Mg Tab) 650 mg PO Q4H PRN PRN Reason: Pain or Fever Stop: 05/18/24 18:30 Last Admin: 04/23/24 03:59 Dose: 650 mg Albuterol (Albuterol 0.083% Nebu Soln 3 Ml Vial) 2.5 mg NEB Q6H PRN; Protocol PRN Reason: Shortness Of Breath Or Wheezing Stop: 05/18/24 18:30 Last Admin: 04/22/24 21:08 Dose: 2.5 mg Ascorbic Acid (Ascorbic Acid 500 Mg Tab) 250 mg PO HS [facility] Stop: 05/20/24 20:59 Last Admin: 04/22/24 21:15 Dose: 250 mg Atorvastatin Calcium (Atorvastatin 10 Mg Tab) 10 mg PO HS [facility] Stop: 05/18/24 20:59 Last Admin: 04/22/24 21:14 Dose: 10 mg Benzonatate (Benzonatate 100 Mg Capsule) 100 mg PO TID PRN PRN Reason: Cough Stop: 05/18/24 18:30 Last Admin: 04/23/24 04:02 Dose: 100 mg Calcium/Vitamin D (Calcium 600mg + Vit D 400 Iu Tab) 1 tab PO BID [facility] Stop: 05/20/24 20:59 Last Admin: 04/23/24 08:28 Dose: 1 tab Cefdinir (Cefdinir 300 Mg Cap) 300 mg PO BID [facility]; Protocol Stop: 04/29/24 09:14 Last Admin: 04/23/24 08:28 Dose: 300 mg Cetirizine HCl (Cetirizine Hcl 10 Mg Tablet) 10 mg PO DAILY [facility] Stop: 05/19/24 08:59 Last Admin: 04/23/24 08:28 Dose: 10 mg Dextrose (Dextrose 50% 50 Ml Syringe) 25 - 50 ml IV UD PRN; Protocol PRN Reason: Hypoglycemia Protocol Stop: 05/18/24 18:30 Doxycycline Hyclate (Doxycycline Hyclate 100 Mg Cap) 100 mg PO BID [facility] Stop: 04/25/24 20:59 Last Admin: 04/23/24 08:28 Dose: 100 mg Enoxaparin Sodium (Enoxaparin Inj 40 Mg/0.4 Ml Syr) 40 mg SQ HS [facility] Stop: 05/18/24 20:59 Last Admin: 04/22/24 21:13 Dose: 40 mg Famotidine (Famotidine 20 Mg Tab) 20 mg PO DAILY [facility] Stop: 05/21/24 08:59 Last Admin: 04/23/24 08:28 Dose: 20 mg Ferrous Sulfate (Ferrous Sulfate 325 Mg Tab) 325 mg PO HS [facility] Stop: 05/20/24 20:59 Last Admin: 04/22/24 21:15 Dose: 325 mg Glucagon (Glucagon For Inj 1 Mg Vial) 1 mg SQ UD PRN; Protocol PRN Reason: Hypoglycemia Protocol Stop: 05/18/24 18:30 Glucose (Glucose 40% Gel 15 Gm Tube) 15 - 30 gm PO UD PRN; Protocol PRN Reason: Hypoglycemia Protocol Stop: 05/18/24 18:30 Glucose (Glucose 10 Tab/Tube) 4 - 8 tab PO UD PRN; Protocol PRN Reason: Hypoglycemia Treatment Stop: 05/18/24 18:30 Hydrocortisone (Hydrocortisone 1% Crm 30 Gm Tube) 1 appln EXT BID [facility] Stop: 05/21/24 20:59 Last Admin: 04/22/24 21:14 Dose: 1 appln Insulin Aspart (Insulin Aspart Per Unit Charge) 0 units SC ACHS [facility] Stop: 05/18/24 18:30 Last Admin: 04/23/24 09:45 Dose: Not Given Lactobacillus Acidophilus (Advanced Probiotic 625 Mg Capsule) 1,250 mg PO DAILY [facility] Stop: 05/19/24 08:59 Last Admin: 04/23/24 08:28 Dose: 1,250 mg Lisinopril (Lisinopril 5 Mg Tab) 5 mg PO QAM [facility] Stop: 05/20/24 09:59 Last Admin: 04/23/24 08:28 Dose: 5 mg Loperamide HCl (Loperamide Hcl 2 Mg Cap) 2 mg PO Q3H PRN PRN Reason: Diarrhea Stop: 05/21/24 11:24 Last Admin: 04/21/24 11:42 Dose: 2 mg Lorazepam (Lorazepam 0.5 Mg Tab) 0.5 mg PO TID PRN PRN Reason: Anxiety Stop: 05/19/24 17:42 Last Admin: 04/22/24 22:07 Dose: 0.5 mg Magnesium Oxide (Magnesium Oxide 400 Mg Tab) 800 mg PO TID [facility] Stop: 05/18/24 20:59 Last Admin: 04/23/24 08:27 Dose: 800 mg Melatonin (Melatonin 3 Mg Tab) 6 mg PO HS PRN PRN Reason: Sleep Stop: 05/18/24 20:59 Last Admin: 04/22/24 22:07 Dose: 6 mg Metoprolol Tartrate (Metoprolol Tartrate 25 Mg Tab) 25 mg PO BID [facility] Stop: 05/20/24 08:59 Last Admin: 04/23/24 08:26 Dose: 25 mg Miscellaneous (Carbohydrates For Hypoglycemia ) 15 - 30 gm PO UD PRN PRN Reason: Hypoglycemia Protocol Stop: 05/18/24 18:30 Ondansetron HCl (Ondansetron Inj 2 Mg/Ml 2 Ml Vial) 4 mg IV Q6H PRN PRN Reason: Nausea Stop: 05/18/24 18:30 Pantoprazole Sodium (Pantoprazole 40 Mg Tab) 40 mg PO QAM [facility] Stop: 05/20/24 09:59 Last Admin: 04/23/24 08:28 Dose: 40 mg Phenazopyridine HCl (Phenazopyridine Hcl 100 Mg Tab) 100 mg PO TID PRN PRN Reason: Dysuria Stop: 05/21/24 16:47 Last Admin: 04/22/24 07:15 Dose: 100 mg Polyethylene Glycol (Polyethylene (Miralax) 17 Gm Pack) 17 gm PO DAILY PRN PRN Reason: Constipation Stop: 05/18/24 18:30 (1) Sepsis Sepsis acute organ dysfunction status: without acute organ dysfunction Sepsis type: sepsis due to unspecified organism Qualified Code(s): A41.9 - Sepsis, unspecified organism
--- NOTE | 2024-04-24 07:47 | Discharge Summary ---
Date of Service April 24, 2024 Admission HPI Per Admitting Provider This is a 54 yr old F who has a significant PMH of T2DM, premature FH of CAD, HTN, HLD and anxiety who presents to the ED 2/2 fever and cough. Pt was seen in ED 3 days ago due to URI sx and fever. She was told she had enterovirus/rhinovirus and was discharge home. Despite fluids and supportive care she continued to feel ill, feverish, sweats, cough and poor appetite. She denies chest pain, sob, hemopytsis, n/v/d, abd pain, dizziness, lightheaded, change in bowel/urinary habits. In ED pt met sepsis criteria in setting of fever and leukocytosis. CXR and CTA reveals a multifocal PNA. She received 2L of IVF and broad spectrum antibiotic with IV rocephin and doxycycline. Admission Exam Per Admitting Provider Vitals signs as noted above General Appearance: Thin, no apparent distress Head: normocephalic, Atraumatic Eyes: normal inspection, EOMI Neck: supple, Trachea midline Respiratory/Chest: Normal breath sounds, left lower crackles, No accessory muscle use Cardiovascular: S1, S2, No murmur Abdomen/GI:Soft, Non tender, Bowel sounds present Extremities/Musculoskeletal:normal inspection, no edema Neurologic/Psych:AAOX3, grossly no focal neurological deficits Skin: normal color, warm Principal Diagnosis Sepsis secondary to multifocal pneumonia, type 2 diabetes, hypertension, Discharge Exam Sitting at the edge of the bed without any acute distress Constitutional well developed, well nourished, + ill appearing and average body habitus Eyes PERRL, conjunctivae normal, anicteric sclerae ENMT external ear and nose normal, oropharynx normal Neck trachea midline, no thyromegaly Respiratory no respiratory distress (Minimal distress at rest) Auscultation: + diminished lung sounds and + crackles (Minimal crackles left base) Cardiovascular Rate/Rhythm: regular rate and regular rhythm; not tachycardic Heart Sounds: normal S1 and normal S2; no murmur Extremities: no edema Gastrointestinal (Abdomen) Inspection/Auscultation: normal bowel sounds; abdomen not distended Percussion/Palpation: abdomen soft; abdomen nontender Neurologic normal touch/pain/proprioception and moves all extremities; no focal motor deficits Psychiatric A+Ox3, euthymic affect Lymphatic no cervical or axillary lymphadenopathy Discharge Data Allergies Allergy/AdvReac Type Severity Reaction Status Date / Time Sulfa (Sulfonamide Allergy Mild HIVES Unverified 06/27/16 00:32 Antibiotics) azithromycin Allergy . Verified 04/18/24 18:43 bee venom protein (honey bee) Allergy Hives Verified 04/19/24 08:40 guaifenesin Allergy COMBO: Verified 04/18/24 18:43 guaifenesin/phenylephrine Penicillins Allergy Hives Verified 04/19/24 08:40 phenylephrine Allergy COMBO: Verified 04/18/24 18:43 guaifenesin/phenylephrine Consultations 04/18/24 14:56 ED Decision to Admit Stat 04/20/24 21:11 Consult Patient Rep [Consult Patient Services] Routine Ordered Studies 04/18/24 11:49 CT angio chest PE protocol Stat Hospital Course (1) Sepsis: (2) Multifocal pneumonia: (3) Anemia: (4) Diabetes mellitus: (5) Hypertension: Plan This is a 54 yr old F who has a significant PMH of T2DM, premature FH of CAD, HTN, HLD and anxiety who presents to the ED 2/2 fever and cough. Pt met Sepsis criteria per current CMS guidelines in setting of fever, leukocytosis and evidence of PNA. She received broad spectrum antibiotics with IV rocephin and doxy along with 2L of IVF. She does not have a lactic acidosis. Sepsis Multifocal PNA IV Zosyn and doxycycline MRSA swab-Is negative, Received gentle IVF x 1 L then d/c Has been on nebs, flutter valve, spirometry and muccinex recently tested + for adeno/rhinovirus-CTA did not show any evidence of pulmonary embolism She has history of allergy to penicillin involving generalized hives and swelling of the lips and throat Received 1 dose of Zosyn in the emergency room and also received steroid Will discontinue Zosyn and start cefepime to cover possible Pseudomonas as well She has been feeling much better since admission A little worse today with diarrhea and feeling generally unwell without any shortness of breath Has been saturating normally on room air and has been eating and drinking well Clinically much better without any fever and no chills and the white count has improved a lot Advised to ambulate more and may be discharged tomorrow Clinically much better with improvement of all of her symptoms Repeat chest x-ray do show improvement of the pneumonia White count is noted to be high at 16,000 She will have repeat CBC tomorrow and if that trend is downward she will be discharged home Her white blood cell count is slightly better and she does not have any symptoms of infection, no fever no chills and denies any shortness of breath She will be discharged home this afternoon She continues to have diarrhea C. difficile toxins x 2 have been negative and stool culture has been negative too Diarrhea seems to be secondary to use of antibiotics Medications adjustment Her medications doses and timing was discussed with her in detail and those were adjusted She will not be getting metformin and also Ozempic while in the hospital She will have insulin subcu for better control of diabetes while in the hospital HTN: chronic, stable, continue metoprolol, lisinopril HLD: chronic, stable on statin T2DM: unknown a1c,-Hemoglobin A1c 6.7 Hold ozempic and metformin, sliding scale insulin Abnormal CT chest: There is an indeterminate 2.9 cm asymmetric soft tissue opacity in the left breast as compared to the right. This is not well evaluated by CT and may represent normal lung parenchyma. Nonemergent mammographic correlation is recommended. pt reports dense breasts and is due for mammo Minimal fluid bilaterally in pleural space Doubt anything drainable Will get chest x-ray prior to discharge to see the improvement of pneumonia DVT ppx: SQ Lovenox FULL CODE PCP: Wilton De Luna Dispo: admit to med tele Total Time Total Time Spent Total Time Spent (In Minutes): 35 minutes Discharge Plan Discharge Items Patient Disposition: Home - Self-Care Reason For Visit: MULTIFOCAL PNEUMONIA Discharge Diagnosis: Sepsis secondary to multifocal pneumonia, type 2 diabetes, hypertension, Condition on Discharge: Fair Activity: Per Instructions section Non-emergency contact: Primary Care Provider Call non-emergency contact if: you have any medication questions and your symptoms worsen Follow-up/Referrals: Andrey De Luna M.D. [Primary Care Provider] - 05/02/24 4:00 pm Diet: Carb Consistent or DM2 and Lactose Intolerant Addtl Attending Provider Instructions: Please take precaution to avoid falls Take your medications as advised Finish the course of antibiotic and you can try renz-jug-balafym probiotics with antibiotic Please keep appointments with the healthcare providers You will need to have a mammogram done as soon as possible as an outpatient Pending Studies at Discharge: No Stand-Alone Forms: [employer], Work/School Release, Smoking Cessation Medications and DC Order Prescriptions: New doxycycline hyclate 100 mg Capsule 100 mg PO BID Qty: 6 0RF hydrocortisone 1 % Ointment 1 applic EXT BID Qty: 30 0RF cefdinir 300 mg Capsule 300 mg PO BID Qty: 6 0RF Advanced Probiotic 625 mg (10 billion cell) Capsule 1 cap PO DAILY Qty: 30 0RF Continued cetirizine 10 mg Tablet 10 mg PO DAILY atorvastatin 10 mg Tablet 10 mg PO HS magnesium oxide 400 mg (241.3 mg magnesium) Tablet 800 mg PO TID metoprolol tartrate 50 mg Tablet 50 mg PO BID lisinopril 5 mg Tablet 5 mg PO DAILY metformin 500 mg Tablet Extended Release 24 Hr 500 mg PO BID calcium citrate-vitamin D2 250 mg-2.5 mcg (100 unit) Tablet 1 tab PO DAILY Ozempic 0.25 mg or 0.5 mg (2 mg/3 mL) Pen Injector 0.25 mg SUBCUT Q14D Discharge Orders: Discharge Order (Routine); Ordered 04/23/24 Ordered By: Darryl Fregoso/Other Patient Handouts: Managing Type 2 Diabetes Admission Data Admit Date/Time: 04/18/24 15:05 Attending Provider: Darryl Gonzalez Admit Provider: Dariel Ledezma Primary Care Provider: Andrey De Luna Other Providers: Dariel Ledezma Other Interventions: Discharge Summary Assessment (RN) Last Done: 04/23/24 13:00
== END 2024-04-23 13:54 | disposition home or self-care (01) | DRG 871 ==
LOC: ED 08:49 → EDINP 15:05 → SUATTDRO 15:05 → 2N 18:15